=== PATIENT | male | born 1940 | race Caucasian/White ===

== ENCOUNTER → 2016-05-28 | Outpatient (CLI) | payer OTHER ==
[~2016-05-28] MED LIST: APIX2.5T PO; ASPI1TAB69 PO; CARD360C PO; CARV6.252 PO; DICL50TA3 PO; DILT300C3 PO; DILT90TA PO; FLUT1SPR9 EACH NARE; GLUC1000 PO; HYDR-2374 PO; HYDR-3583 PO; NORC5TAB PO; OSTETAB12 PO; ROSU40 PO; ZETI10TA5 PO; [UNRECOGNIZED DRUG - CODE] PO
== END ==
LOC: CPRE 11:57
PROVIDERS: ATTEND Neurological Surgery
DX: Z01.818 Encounter for other preprocedural examination (principal); M48.02 Spinal stenosis, cervical region; M50.30 Other cervical disc degeneration, unspecified cervical region; M47.12 Other spondylosis with myelopathy, cervical region

== ENCOUNTER 2016-06-12 05:23 | Observation (INO) | payer MEDICARE, OTHER ==
--- NOTE | 2016-06-11 14:41 | MH ---
cc: MONICA COELHO M.D., KIRIT M.D. WILSON, VANCE E. M.D. NASHED, MAGDY S. M.D. DATE OF ADMISSION: 06/12/2016 ADMITTING DIAGNOSIS Cervical stenosis. HISTORY OF PRESENT ILLNESS This is a 76-year-old male who we initially evaluated on April 09, 2016 when he presented for evaluation of neck and low back pain. He states 30 years ago he had fallen two stories and landed on his back on a pile of concrete. He states he fracture three vertebrae and a sacrum and has had chronic pain since then. He states his pain was controlled with Celebrex but about a year and a half ago he was taken off this and he states his pain has been bad since then. He was referred to Dr. Hadley and had epidural steroid injections which he states helps sometimes. His last injection was five months ago. He cannot walk, stating his back and right leg hurt equally as bad. He has difficulty stating the exact distribution of his pain in his right leg. He is using a cane and because his right leg feels that he could give out on him. He states he stumbles a lot. He has paresthesias in his hands at night. He also has urinary frequency and states he urinates every hour at night. He complains of chronic neck pain and pain radiating to the right upper extremity. Again, cannot give the exact distribution. He has paresthesias and numbness in his hands at night. He has had PT on his neck and back which he states made the pain worse. He uses a cane to help him ambulate short distances. He has been seen for follow-up evaluation with us on April 30, 2016 to review a new cervical MRI scan. He states that he feels overall his symptoms are getting worse over the last month and is having difficulty sleeping and has to sleep sitting up so his hands do not hurt. He had complaints of weakness in his hands and numbness with intermittent paresthesias right more than left. He has an unsteady gait and urinary urgency and frequency. His neck pain is equal to his low back pain. The patient is requesting that we proceed with surgical intervention at this time. PAST MEDICAL HISTORY 1. Coronary artery disease and heart attack in 2009. 2. Fractured pelvis and three vertebrae 30 years ago. 3. Diabetes mellitus. 4. Emphysema. 5. Osteoarthritis. 6. Hypertension. 7. Benign prostatic hypertrophy. MEDICATIONS Current medications: 1. Crestor 40 mg daily. 2. Zetia 10 mg daily. 3. Diltiazem CD 300 mg daily. 4. Carvedilol 6.25 mg b.i.d. 5. Metformin 1500 mg b.i.d. 6. Flomax 0.4 mg q.h.s. ALLERGIES OXYCONTIN. FAMILY HISTORY His mother is at 86 years old with a stroke. His father is at 99 years old of natural causes. He has a sister who is at 86 years old with heart disease. SOCIAL HISTORY He is a soto. He is . He has four children. He used to smoke and quit in 1997. He drinks 2+ drinks of alcohol daily. REVIEW OF SYSTEMS CONSTITUTIONAL: He denies any fever or chills. EARS, NOSE, AND THROAT: No pharyngitis, exudates or bloody drainage from his nose. CARDIOVASCULAR: Denies any chest pain or palpitations. RESPIRATORY: No cough. Positive for shortness of breath. GENITOURINARY: No dysuria. Positive for urinary frequency. MUSCULOSKELETAL: Positive for neck and low back pain. SKIN: No rashes or pruritus. NEUROLOGIC: No difficulty with speech or memory. GASTROINTESTINAL: No nausea, vomiting, abdominal pain. PSYCHIATRIC: Positive for anxiety symptoms. Denies any depression symptoms. ENDOCRINE: Significant for polyuria. No polydipsia. HEMATOLOGIC: No bleeding tendencies but positive for bruising tendencies. PHYSICAL EXAMINATION HEAD: Normocephalic, atraumatic. NECK: Supple. No carotid bruits heard on auscultation. LUNGS: Clear to auscultation bilaterally. HEART: Regular rate and rhythm. Normal S1 and S2. ABDOMEN: Soft, nontender. Positive bowel sounds. SKIN: No cyanosis or erythema. MUSCULOSKELETAL: He has 3/5 strength in the upper and lower extremities. He has a difficult time ambulating with a cane secondary to his pain and he is unsteady. NEUROLOGIC: He is awake, alert and oriented. Cranial nerves II-XII grossly intact. Speech is fluent. Comprehension is good. DATA REVIEW MRI of the cervical spine from April 29, 2016 reveals C4-C5 and C5-C6 severe disc degeneration with spinal stenosis from a large disc osteophyte complex ventral and posteriorly along with spinal cord impingement ventrally. There is also advanced C3-C4 disc disease with left-sided foraminal stenosis. 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 PLAN We have discussed the treatment options with the patient and he is requesting that we proceed with surgical intervention. Therefore we have recommended an anterior C4-C5 and C5-C6 microdiscectomy with fusion. The procedure as well as the risk benefit, alternative and recovery time were explained in great detail with the patient. We have discussed the risks involved with surgery include but not limited to bleeding, infection, muscle weakness, voice hoarseness, difficulty swallowing, heart attack, stroke, blood clots, non-fusion, scar tissue formation among others. The patient understands the procedure as well as the risks involved and he is requesting that we proceed and he was therefore scheduled accordingly. Dictated by: Quinton Coppola PA-C MD JONNATHAN Delaney/JEWELS /1:08 PM /2:22 PM EDIE
[~2016-06-12] VITALS: Ht 180.3 cm; Wt 82.6 kg
[~2016-06-12 05:23] MED LIST changes: -APIX2.5T PO; -DILT300C3 PO; -DILT90TA PO; -GLUC1000 PO; -HYDR-2374 PO; -NORC5TAB PO
[2016-06-12] MEDS ORDERED: VANCOMYCIN HCL 1000 MG ON-CALL/NS 250 ML IV SCH ×2 (06:30)
[2016-06-12] MEDS ORDERED: SODIUM CHLOR 0.9% 1000 ML INJ 1,000 ML IV SCH (06:30)
[2016-06-12] MEDS ORDERED: DILT300C3 PO (08:05)
[2016-06-12] MEDS ORDERED: LACTATED RINGER'S 1000 ML IV SCH (08:15)
[2016-06-12] MEDS ORDERED: SODIUM CHLORID 0.9% 500 ML IV SCH (08:15)
[2016-06-12] MEDS ORDERED: INSULIN HUMAN REGULAR 1,000 UNITS/10 ML VIAL SQ PRN (08:15)
[2016-06-12] MEDS ORDERED: METOPROLOL TARTRATE 25 MG TAB PO PRN (08:15)
[2016-06-12 08:20] VITALS: BP 147/77; PULSE 99; RESP 16; TEMP 98; O2SAT 97
[2016-06-12] MEDS ORDERED: KETAMINE HCL 500 MG/5 ML VIAL ONE (10:46)
[2016-06-12] MEDS ORDERED: VANCOMYCIN HCL 1000 MG VIAL ONE (10:58)
[2016-06-12] MEDS ORDERED: BUPIVACAINE/EPINEPHRINE 0.25% PF 30 ML VIAL ONE (10:58)
[2016-06-12] MEDS ORDERED: THROMBIN (TOPICAL) 5,000 UNIT VIAL ONE ×2 (10:58→13:23)
[2016-06-12] MEDS ORDERED: GELFOAM SIZE 100 ONE (10:59)
[2016-06-12] MEDS ORDERED: ONDANSETRON HCL 4 MG/2 ML VIAL IV PUSH ONE (12:00)
[2016-06-12] MEDS ORDERED: PHENYLEPH/NS 1000 MCG/10 ML SYR IV ONE (12:00)
[2016-06-12] MEDS ORDERED: PROPOFOL 200 MG/20 ML AMP IV ONE (12:00)
[2016-06-12] MEDS ORDERED: LACTATED RINGER'S 1000 ML INJ 2,000 ML IV ONE (12:00)
[2016-06-12] MEDS ORDERED: NS + KCL 20 MEQ INJ 1,000 ML IV SCH (13:58)
[2016-06-12] MEDS ORDERED: CYCLOBENZAPRINE HCL 10 MG TAB PO PRN (14:00)
[2016-06-12] MEDS ORDERED: ALUMINUM/MAGNESIUM/SIMETH 30 ML CUP PO PRN (14:00)
[2016-06-12] MEDS ORDERED: RESP: ALBUTEROL 2.5 MG/3 ML NEB (PRN) NEB (14:00)
[2016-06-12] MEDS ORDERED: MORPHINE SULFATE 4 MG/ML INJ IV PRN (14:00)
[2016-06-12] MEDS ORDERED: GLUCAGON 1 MG/ML VIAL OTHER PRN (14:00)
[2016-06-12] MEDS ORDERED: BISACODYL 10 MG SUPP PR PRN (14:00)
[2016-06-12] MEDS ORDERED: ACETAMINOPHEN 325 MG TAB PO PRN (14:00)
[2016-06-12] MEDS ORDERED: PROMETHAZINE INJ 25 MG/ML VIAL IM PRN (14:00)
[2016-06-12] MEDS ORDERED: MENTHOL LOZENGE SUCK-ON PRN (14:00)
[2016-06-12] MEDS ORDERED: MAGNESIUM HYDROXIDE SUSP 30 ML CUP PO PRN (14:00)
[2016-06-12] MEDS ORDERED: ONDANSETRON HCL 4 MG/2 ML VIAL IV PRN (14:00)
[2016-06-12] MEDS ORDERED: ACETAMINOPHEN/HYDROcodone 325 MG/10 MG TAB PO PRN (14:00)
[2016-06-12] MEDS ORDERED: ZOLPIDEM TARTRATE 5 MG TAB PO PRN (14:00)
[2016-06-12] MEDS ORDERED: SODIUM CHLORIDE 0.9% FLUSH 5 ML FLUSH IVF PRN (14:00)
[2016-06-12] MEDS ORDERED: cloNIDine HCL 0.1 MG TAB PO PRN (14:00)
[2016-06-12] MEDS ORDERED: DEXTROSE 50% IN WATER 50 ML VIAL(D50) IV PUSH PRN (14:00)
[2016-06-12 14:02] VITALS: BP 142/94; PULSE 106; RESP 18; TEMP 97.5; O2SAT 90
--- NOTE | 2016-06-12 14:07 | PD.OP ---
cc: Austyn Mccollum MD; Michael Suarez MD, Kirit MD Operative Report Date of Surgery: Jun 12, 2016 Preoperative Diagnosis: Cervical C4-5 and C5-6 disc osteophyte complex with degenerative disc disease and spinal stenosis; neck pain with myeloradiculopathy Postoperative Diagnosis: Same Procedure: Anterior cervical C4-5 and C5-6 microdiscectomy with interbody fusion; anterior C4-6 cervical plate placement; C4-5 and C5-6 interbody cage placement; microtechnique Anesthesia: Gen. endotracheal by Estefany Washington Surgeon: Kevin Wong M.D. Policy Change Clerk(s): Julia Martinez Operation and Findings: Following administration of general endotracheal anesthesia, the patient received a gram of vancomycin and Decadron 10 mg intravenously. Sequential compression devices were placed in supine position on a Randall table and all pressure points adequately padded. The head secured in a donut and anterior cervical region then shaved and prepped with Chloraprep and sterilely draped with Ioban along with the usual sterile draping. A transverse skin incision on the left side of the neck was then made after infiltrating the skin with 0.5% Marcaine with epinephrine solution extending down through the platysma. At the anterior border of the sternocleidomastoid further dissection was undertaken developing a plane between the carotid sheath laterally and the trachea esophagus medially. The prevertebral fascia was exposed and dissected out. The medial attachments of the longus colli muscles were detached and a self- retaining retractor used for exposure. The C4-5 disc space was localized with a marking the disc space and using lateral fluoroscopy. Terrell distraction screws 14 mm length were placed one in the C4 and one in the C6 body interbody distraction and exposure. There was significant disc degeneration with disc height collapse and anterior osteophytes noted at the C4-5 and C5-6 levels and the osteophytes were resected with a Leksell and annulus incised with a 15 blade and further dissection undertaken using microtechnique with microscope magnification. Diskectomy was undertaken with pituitaries and the endplates were also decorticated with curettes and drill bit. And more posteriorly there was disk osteophyte complex compressing the thecal sac along with a significant uncovertebral joint hypertrophy with foraminal stenosis which was decompressed along with removal of the posterior longitudinal ligaments at both levels. The foramen was decompressed bilaterally using a Kerrison's and palpation with a nerve hook, the exiting nerve roots were felt to be free. The area was then copiously irrigated. I then placed a Peek cages packed with local autograft bone at the C4-5 and C5-6 interspaces under fluoroscopy guidance. Terrell distraction pins were removed and the holes plugged with Gelfoam for hemostasis. In order to facilitate the fusion and provide stabilization, a Precision spine cervical plate was then placed with two 14 mm variable angle screws in the C4 body, one in the C5 and two 14 mm fixed angle screws in the C6 body. The plate screw locking mechanism was then engaged. AP and lateral fluoroscopy confirmed good placement of the construct and the retractor was then removed. Muscular bleeding points were cauterized with bipolar cautery and Gelfoam was then also used for hemostasis which was removed. The platysma was then approximated using 3-0 Vicryl interrupted stitches and 3-0 Vicryl subcuticular stitch also placed in an interrupted fashion, and final skin closure was with Mastisol and Steri-Strips. Sterile dressing was then applied. The patient was then extubated and taken to the recovery room. There are no intraoperative complications and all sponge and needle counts were correct at the end of procedure. Estimated blood loss was about 200 cc. The patient did undergo intraoperative neurologic monitoring which remained stable throughout the surgery. Kevin Wong MD Jun 12, 2016 14:07
[2016-06-12] MEDS ORDERED: fentaNYL CITRATE 250 MCG/5 ML AMP ONE (14:22)
[2016-06-12] MEDS ORDERED: *morphine SULFATE 8 MG/ML PERIprocedure ONLY ONE ×2 (14:35→14:45)
[2016-06-12] MEDS ORDERED: *HYDROmorphone PF 1 MG VIAL PERIprocedural Use ONLY ONE ×2 (14:51→15:36)
[2016-06-12] MEDS ORDERED: DO NOT ADM ANY ANTICOAGULANT DRUGS XX PRN (15:15)
--- NOTE | 2016-06-12 15:18 | RADRPT ---
EXAM DATE/TIME: 06/12/2016 11:05 [facility] COMPARISON: No previous studies available for comparison. INDICATIONS : C4-C5-C6 anterior cervical fusion. Level localization. MEDICAL HISTORY : None. SURGICAL HISTORY : None. ENCOUNTER: Initial ACUITY: 1 day PAIN SCORE: Non-responsive. LOCATION: neck FINDINGS: FINDINGS: Single lateral view of the spine demonstrates the spine to be in anatomic alignment. A probe is in pl lilo at the C4-C5. CONCLUSION: 1. Postsurgical changes as above. Justin Eagle MD on June 12, 2016 at 15:11 Board Certified Radiologist. This report was verified electronically.
--- NOTE | 2016-06-12 15:20 | RADRPT ---
EXAM DATE/TIME: 06/12/2016 11:05 [facility] COMPARISON: No previous studies available for comparison. INDICATIONS : Post-op C4-C5-C6 anterior cervical fusion. MEDICAL HISTORY : None. SURGICAL HISTORY : None. ENCOUNTER: Initial ACUITY: 1 day PAIN SCORE: Non-responsive. LOCATION: neck FINDINGS: There is anterior cervical fusion with a plate anteriorly from C4-C6. The vertebral bodies are normal in alignment on the lateral view. CONCLUSION: 1. Postsurgical changes as above. Justin Eagle MD on June 12, 2016 at 15:16 Board Certified Radiologist. This report was verified electronically.
[2016-06-12] MEDS: INSULIN NovoLIN REGULAR SUPPLEMENTAL SCALE SQ SCH ×2 (15:58→21:00)
[2016-06-12] MEDS: ACETAMINOPHEN/HYDROcodone 325 MG/10 MG TAB PO PRN ×2 (17:21→22:16)
[2016-06-12 20:00] VITALS: BP 109/67; PULSE 109; RESP 18; TEMP 98.2; O2SAT 93
[2016-06-12] MEDS: SODIUM CHLORIDE 0.9% FLUSH 5 ML FLUSH IVF SCH (21:00)
[2016-06-12] MEDS ORDERED: EZETIMIBE 10 MG TAB PO SCH (21:00)
[2016-06-12] MEDS ORDERED: ATORVASTATIN 80 MG TAB PO SCH (21:00)
[2016-06-12] MEDS ORDERED: DILTIAZEM-CD 300 MG CAP ER PO SCH (21:00)
[2016-06-12] MEDS: CARVEDILOL 6.25 MG TAB PO SCH (22:52)
[2016-06-12] MEDS: DOCUSATE SODIUM 100 MG CAP PO SCH (22:52)
[2016-06-13] VITALS: BP 118/72; PULSE 110; RESP 18; TEMP 97.6; O2SAT 93
[2016-06-13 02:27] VITALS: O2SAT 95
[2016-06-13] MEDS: ACETAMINOPHEN/HYDROcodone 325 MG/10 MG TAB PO PRN ×2 (02:28→06:49)
[2016-06-13 04:00] VITALS: BP 120/78; PULSE 103; RESP 18; TEMP 96.3; O2SAT 96
[2016-06-13] MEDS: INSULIN NovoLIN REGULAR SUPPLEMENTAL SCALE SQ SCH (06:50)
[2016-06-13 08:02] VITALS: BP 127/75; PULSE 99; RESP 18; TEMP 97.3; O2SAT 94
[2016-06-13 08:20] VITALS: RESP 16
[2016-06-13] MEDS ORDERED: ASPIRIN EC 81 MG TABEC PO SCH (09:00)
[2016-06-13] MEDS ORDERED: CALCIUM CARBONATE 1.25 GM (CA 500 MG) TAB PO SCH (09:00)
[2016-06-13] MEDS ORDERED: PANTOPRAZOLE SOD 40 MG DELAYED RELEASE TAB PO SCH (09:00)
[2016-06-13] MEDS ORDERED: FLUTICASONE PROPIONATE 50 MCG/ACT 16 GM NASAL SPRAY EACH NARE SCH (09:00)
[2016-06-13] MEDS ORDERED: CHOLECALCIFEROL (VIT D3) 1000 UNIT TAB PO SCH (09:00)
--- NOTE | 2016-06-13 09:38 | HHI.NSPN ---
History Chief Complaint: Mild incisional pain. Interval History 06/13/16: Pt states neck pain controlled. No radiculopathy in UEs. Paresthesias in UEs improved. Pt wants to go home. Review of Systems General: Negative for: fever, chills, insomnia Respiratory: Negative for: shortness of breath, cough, sputum Cardiovascular: Negative for: chest pain Gastrointestinal: Negative for: nausea, vomitting, diarrhea, constipation Exam Results Vital Signs Date Time Temp Pulse Resp B/P Pulse Ox O2 Delivery O2 Flow Rate FiO2 06/13/16 08:02 97.3 99 18 127/75 94 06/13/16 02:27 Nasal Cannula 2.00 Intake and Output 06/12/16 06/12/16 06/13/16 08:00 16:00 00:00 Intake Total 2250 ml Output Total 925 ml Balance 1325 ml Physical Examination Resp: CTA bilaterally Heart: NSR no murmurs Abd: Soft positive bs Skin: Incision clean and dry. No signs of infection. Muscle: Moves all 4 extremities well. Neuro: Pt awake and alert. Follows commands well. Speech clear and appropriate. Lab, Micro, Other Results 06/12/16 06/12/16 06/13/16 15:00 23:00 07:00 Intake Total 2100 ml 150 ml Output Total 525 ml 400 ml 700 ml Balance 1575 ml -250 ml -700 ml Intake Oral 0 ml IV Total 150 ml Other 2100 ml Output Urine Total 325 ml 400 ml 700 ml Estimated Blood Loss 200 ml Medical Decision Making Impression and Plan A: 76 y/o M s/p C4/C5 and C5/C6 ACF with cervical plate placement P: Discharge pt home Keep incision clean and dry. Discussed restrictions with pt. Quinton Coppola Jun 13, 2016 09:38
[2016-06-13] MEDS ORDERED: HYDR-3583 PO (09:44)
[2016-06-13] MEDS: DOCUSATE SODIUM 100 MG CAP PO SCH (10:03)
[2016-06-13] MEDS: CARVEDILOL 6.25 MG TAB PO SCH (10:03)
[2016-06-13] MEDS: SODIUM CHLORIDE 0.9% FLUSH 5 ML FLUSH IVF SCH (10:04)
== END 2016-06-13 11:36 | disposition home or self-care (01) ==
LOC: HSDC 05:23 → UNDOADMIN 14:02 → HSDI 14:02 → N05A 16:31
PROVIDERS: ADMIT Neurological Surgery; ATTEND Neurological Surgery
DX: M48.02 Spinal stenosis, cervical region (principal); M25.78 Osteophyte, vertebrae; M50.121 Cervical disc disorder at C4-C5 level with radiculopathy; R35.0 Frequency of micturition; I25.10 Atherosclerotic heart disease of native coronary artery without angina pectoris; E11.9 Type 2 diabetes mellitus without complications; J43.9 Emphysema, unspecified; M19.90 Unspecified osteoarthritis, unspecified site; I10 Essential (primary) hypertension; N40.0 Benign prostatic hyperplasia without lower urinary tract symptoms; R20.0 Anesthesia of skin; R53.1 Weakness; R26.81 Unsteadiness on feet; Z87.891 Personal history of nicotine dependence; Z82.49 Family history of ischemic heart disease and other diseases of the circulatory system
CPT/HCPCS: 00600; 20936; 22551; 22552; 22853; 72020; 72040; 76000; 76937; 82948; C1713; G0378; J0690; J1170; J2270; J2370; J2405; J3010; J3370; J3480; J7050; J7120; L0150; L0172

== ENCOUNTER 2018-03-17 11:51 | Inpatient (IN) ==
[2018-03-17] MEDS ORDERED: Sod Chloride 0.9% Inj 1,000 ML IV.SIG ONE (12:16)
[2018-03-17] MEDS ORDERED: Morphine Inj 4 MG/ML Vial IV.PUSH ONE (12:16)
--- NOTE | 2018-03-17 12:18 | ED ---
HPI General Chief Complaint: Abdominal Pain Stated Complaint: Abd Pain Complaint Time Seen by Provider: 03/17/18 12:06 Source: patient Mode of arrival: ambulatory Limitations: no limitations History of Present Illness HPI narrative: Patient is a 77-year-old male with history of lung cancer currently undergoing chemotherapy treatment, presents the emergency room with complaints of abdominal pain. Patient reports that for the past 3 months, he has been having intermittent episodes of lower abdominal pain. Patient reports that the pain came on yesterday morning and has been persistent since yesterday morning. Patient has not been able to eat or drink anything since yesterday. Reports that his doctors made him come to the ER for evaluation. Patient denies any nausea or vomiting, reports that he had a normal bowel movement today. Patient denies any fever or chills, denies any dysuria, urinary urgency or frequency. Patient reports that he has had a colonoscopy in the past, reports that the colonscopies have been normal . Related Data Home Medications Medication Instructions Recorded Confirmed aspirin [Aspirin Low Dose] 81 mg PO BID 01/02/18 03/17/18 carvedilol 6.25 mg PO BID 01/02/18 03/17/18 diltiazem HCl 300 mg PO DAILY 01/02/18 03/17/18 ezetimibe [Zetia] 10 mg PO DAILY 01/02/18 03/17/18 glucosamine-chondroitin [Osteo 2 tab PO DAILY 01/02/18 03/17/18 Bi-Flex] metformin 500 mg PO TID 01/02/18 03/17/18 omeprazole 20 mg PO BID 01/02/18 03/17/18 rosuvastatin 40 mg PO DAILY 01/02/18 03/17/18 tamsulosin 0.4 mg PO DAILY 01/02/18 03/17/18 Allergies Allergy/AdvReac Type Severity Reaction Status Date / Time acetaminophen Allergy Severe Rash Verified 03/17/18 12:22 oxycodone Allergy Severe Rash Verified 03/17/18 12:22 Review of Systems ROS: all other systems reviewed are negative PMFSH History History Provided By: Patient Medical History Medical History Cancer of left lung (Acute) Coronary artery disease (Acute) Current non-smoker but past smoking history unknown (Acute) Diabetes mellitus (Acute) GERD (gastroesophageal reflux disease) (Acute) History of spinal stenosis (Acute) Myocardial infarct, old (Acute) Surgical History Surgical History H/O heart artery stent (Acute) H/O right knee surgery (Acute) Social History Social History Substance History: No History of Abuse Second Hand Smoke Exposure: No Smoking Status: Former smoker Tobacco Type: Cigarettes How Often Do You Have a Drink Containing Alcohol: Monthly or less Recent Travel in [facility] within the Last 8 Weeks: No Recent Out of Country Travel within the Last 8 Weeks: No Exam Narrative Exam Narrative: GENERAL: Moderate distress SKIN: Focused skin assessment warm/dry. HEAD: Atraumatic. Normocephalic. EYES: Pupils equal and round. No scleral icterus. No injection or drainage. ENT: No nasal bleeding or discharge. Mucous membranes pink and moist. NECK: Trachea midline. No JVD. CARDIOVASCULAR: Regular rate and rhythm. No murmur appreciated. RESPIRATORY: No accessory muscle use. Clear to auscultation. Breath sounds equal bilaterally. GASTROINTESTINAL: Abdomen soft, diffusely tender lower abdomen with guarding on exam, nondistended. Hepatic and splenic margins not palpable. MUSCULOSKELETAL: No obvious deformities. No clubbing. No cyanosis. No edema. NEUROLOGICAL: Awake and alert. No obvious cranial nerve deficits. Motor grossly within normal limits. Normal speech. PSYCHIATRIC: Appropriate mood and affect; insight and judgment normal. Course Initial Documented Vital Signs Temperature 98.9 F 03/17/18 11:57 Pulse Rate 114 H 03/17/18 11:57 Respiratory Rate 18 03/17/18 11:57 Blood Pressure 135/85 03/17/18 11:57 Pulse Oximetry 96 03/17/18 11:57 Last Documented Vital Signs Temperature 98.9 F 03/17/18 11:57 Pulse Rate 114 H 03/17/18 11:57 Respiratory Rate 18 03/17/18 11:57 Blood Pressure 135/85 03/17/18 11:57 Pulse Oximetry 96 03/17/18 12:19 Medical Decision Making MDM Narrative Medical decision making narrative: During the course of the patients emergency department visit, the patients history, examination, and differential diagnosis were reviewed with the patient. The patient was placed on a bank reconciliator with oximetry and frequent blood pressure monitoring. The patient had an IV access obtained and blood work sent for analysis. The patient was initially provided IVF as well as IV morphine for pain relief - he has tolerated morphine in the past The patients laboratory studies were reviewed and remarkable for: WBC 13.3, hgb 12.1, hct 38.1, platelets 450 Sodium 139, potassium 3.6, BUN 10, creatinine 1.21, glucose 119 CT of the abdomen and pelvis shows abnormal loops of distal small bowel in the right midabdomen with wall thickening and surrounding inflammatory change. This is nonspecific and could be infectious versus inflammatory. Given patient' s abdominal pain, plan to admit for observation, will give ciprofloxacin as well as Flagyl. Case reviewed with Dr. Das who accepts pt to service Medical Screen Exam Complete: Yes Emergency Medical Condition: Yes Differential Diagnosis Differential Diagnosis: Colitis, diverticulitis, appendicitis, abdominal aortic aneurysm, mesenteric ischemia Lab Data Lab results reviewed: Yes I reviewed the patient's lab results. Result diagrams: 03/17/18 12:31 03/17/18 12:31 Lab Results 03/17/18 03/17/18 03/17/18 Range/Units 12:31 12:31 12:31 WBC 13.3 H (4.0-11.0) th/mm3 RBC 4.35 L (4.50-5.90) mil/mm3 Hgb 12.1 L (13.0-17.0) gm/dL Hct 38.1 L (39.0-51.0) % MCV 87.4 (80.0-100.0) fL MCH 27.9 (27.0-34.0) pg MCHC 31.9 L (32.0-36.0) % RDW 15.9 (11.6-17.2) % Plt Count 450 (150-450) th/mm3 MPV 7.9 (7.0-11.0) fL Neut % (Auto) 83.2 H (16.0-70.0) % Lymph % (Auto) 8.2 L (9.0-44.0) % [place] % (Auto) 7.7 (0.0-8.0) % Eos % (Auto) 0.2 (0.0-4.0) % Baso % (Auto) 0.7 (0.0-2.0) % Neut # (Auto) 11.1 H (1.8-7.7) th/mm3 Lymph # (Auto) 1.1 (1.0-4.8) th/mm3 [place] # (Auto) 1.0 H (0.0-0.9) th/mm3 Eos # (Auto) 0.0 (0.0-0.4) th/mm3 Baso # (Auto) 0.1 (0.0-0.2) th/mm3 WBC Differential . Differential Comment Auto diff final PT 12.1 H (9.8-11.6) sec INR 1.2 Ratio APTT 29.2 (23.4-31.7) sec Sodium 139 (136-145) meq/L Potassium 3.6 (3.5-5.1) meq/L Chloride 101 (98-107) meq/L Carbon Dioxide 27.5 (21.0-32.0) meq/L Anion Gap 11 (5-15) meq/L BUN 10 (7-18) mg/dL Creatinine 1.21 (0.60-1.30) mg/dL Estimated GFR 58 L (>89) mL/min Random Glucose 119 H (74-106) mg/dL Calcium 9.5 (8.5-10.1) mg/dL Magnesium 1.5 (1.5-2.5) mg/dL Total Bilirubin 0.3 (0.2-1.0) mg/dL AST 18 (15-37) U/L ALT 12 (12-78) U/L Alkaline Phosphatase 78 (45-117) U/L Total Protein 8.0 (6.4-8.2) g/dL Albumin 2.7 L (3.4-5.0) g/dL Lipase 69 L (73-393) U/L Imaging Data Attestation: I personally reviewed and interpreted this imaging study as follows : Radiologist's impression: Abdomen/Pelvis CT 03/17/18 12:16 CONCLUSION: 1. Abnormal loops of distal small bowel in the right midabdomen with wall thickening and surrounding inflammatory change. This is nonspecific and could be infectious or inflammatory. This area was unremarkable on the recent PET/CT dated 01/27/2018. Discharge Plan Discharge Disposition Patient Disposition: 30 Still Patient Discharge Condition Condition: Stable Discharge Details Diagnosis: Colitis Physicians Team ED Provider: Shasta Allen Primary Care Provider: Supinski,Edward Rxs /Orders / Referrals /Forms Prescriptions: No Action metformin 500 mg Tablet 500 mg PO TID RF: 0 carvedilol 6.25 mg Tablet 6.25 mg PO BID RF: 0 diltiazem HCl 300 mg Capsule,Extended Release 24 Hr 300 mg PO DAILY RF: 0 aspirin [Aspirin Low Dose] 81 mg Tablet,Delayed Release (Dr/Ec) 81 mg PO BID RF: 0 tamsulosin 0.4 mg Capsule,Extended Release 24hr 0.4 mg PO DAILY RF: 0 ezetimibe [Zetia] 10 mg Tablet 10 mg PO DAILY RF: 0 glucosamine-chondroitin [Osteo Bi-Flex] 250-200 mg Tablet 2 tab PO DAILY RF: 0 rosuvastatin 40 mg Tablet 40 mg PO DAILY RF: 0 omeprazole 20 mg Tablet,Delayed Release (Dr/Ec) 20 mg PO BID RF: 0 Discharge Interventions Interventions: Vital Signs Last Done: 03/17/18 11:57 Status ED Status: With Doctor
[2018-03-17 12:41] LABS: Baso # (Auto) 0.1 th/mm3 (0.0-0.2); Baso % (Auto) 0.7 % (0.0-2.0); Eos % (Auto) 0.2 % (0.0-4.0); Hematocrit 38.1 % (39.0-51.0); Hemoglobin 12.1 gm/dL (13.0-17.0); Lymph # (Auto) 1.1 th/mm3 (1.0-4.8); Lymph % (Auto) 8.2 % (9.0-44.0); Mean Corpuscular HGB Conc 31.9 % (32.0-36.0); Mean Corpuscular Hemoglobin 27.9 pg (27.0-34.0); Mean Corpuscular Volume 87.4 fL (80.0-100.0); Mean Platelet Volume 7.9 fL (7.0-11.0); Mono % (Auto) 7.7 % (0.0-8.0); Neut # (Auto) 11.1 th/mm3 (1.8-7.7); Neut % (Auto) 83.2 % (16.0-70.0); Platelet Count 450 th/mm3 (150-450); Red Blood Count 4.35 mil/mm3 (4.50-5.90); Red Cell Distribution Width 15.9 % (11.6-17.2); White Blood Count 13.3 th/mm3 (4.0-11.0)
[2018-03-17 12:53] LABS: Activated Partial Thrombo Time 29.2 sec (23.4-31.7); INR 1.2 Ratio; Prothrombin Time 12.1 sec (9.8-11.6)
[2018-03-17 12:56] LABS: Alanine Aminotransferase 12 U/L (12-78); Albumin 2.7 g/dL (3.4-5.0); Anion Gap 11 meq/L (5-15); Aspartate Aminotransferase 18 U/L (15-37); Blood Urea Nitrogen 10 mg/dL (7-18); Calcium 9.5 mg/dL (8.5-10.1); Carbon Dioxide 27.5 meq/L (21.0-32.0); Chloride 101 meq/L (98-107); Glomerular Filtration Rate 58 mL/min (>89); Glucose,Random 119 mg/dL (74-106); Lipase 69 U/L (73-393); Magnesium 1.5 mg/dL (1.5-2.5); Potassium 3.6 meq/L (3.5-5.1); Sodium 139 meq/L (136-145)
[2018-03-17 12:58] LABS: Alkaline Phosphatase 78 U/L (45-117)
--- NOTE | 2018-03-17 13:53 | CT ---
EXAM DATE: 03/17/2018 1:38 PM EST AGE/SEX: 77 years / Male INDICATIONS: Abdominal pain since yesterday. CLINICAL DATA: This is the patient's initial encounter. Patient reports that signs and symptoms have been present for 2 days and indicates a pain score of 6/10. MEDICAL/SURGICAL HISTORY: Carcinoma, lung. Diabetes. Cardiovascular disease. Myocardial infa rction. . Cardiac stent. ORAL CONTRAST: No oral contrast ingested. RADIATION DOSE: 6.97 CTDI (mGy) COMPARISON: [facility], CT SIMULATION, 03/06/2018. . TECHNIQUE: Multiple contiguous axial images were obtained through the abdomen and pelvis following b olus infusion of 96 ml Omnipaque 350 (iohexol) nonionic water-soluble contrast as a single exam dos e. No oral contrast ingested. Using automated exposure control and adjustment of the mA and/or kV ac cording to patient size, radiation dose was kept as low as reasonably achievable to obtain optimal di agnostic quality images. DICOM format image data is available electronically for review and comparis on. FINDINGS: Lower Lungs: There is a minimal right pleural effusion. Liver: The liver has a homogeneous density without space-occupying lesion. There is no dilation of th e biliary tree. The gallbladder is unremarkable in appearance. Spleen: Homogeneous density without enlargement. Pancreas: Unremarkable without mass or calcification. Kidneys: Normal in size and shape. No evidence of mass or hydronephrosis. Adrenal Glands: Unremarkable. Aorta: The aorta and proximal iliac vessels are grossly unremarkable without aneurysmal dilation. Bowel/Mesentery: No oral contrast was given limiting the sensitivity. There is an abnormal loop of b owel right mid abdomen with wall thickening and surrounding inflammatory change. This appears to repr esent small bowel. There is no drainable fluid or free air.. Abdominal Wall: Intact. Retroperitoneum: No evidence of adenopathy in the retrocrural, para-aortic, or deep pelvic regions. Bladder: Contours are smooth. Reproductive Organs: No abnormal masses or calcifications seen. Inguinal: The inguinal region is unremarkable without evidence of adenopathy. Bony Structures: Osteopenia, degenerative change and scoliosis are present. CONCLUSION: 1. Abnormal loops of distal small bowel in the right midabdomen with wall thickening and surrounding inflammatory change. This is nonspecific and could be infectious or inflammatory. This area was unre markable on the recent PET/CT dated 01/27/2018. Electronically signed by: Yassine Bacon MD 03/17/2018 1:52 PM EST
[2018-03-17] MEDS ORDERED: Ciprofloxacin 200 MG/100 ML 200 MG/100 ML PIGGYBACK IV.SIG ONE (14:44)
[2018-03-17] MEDS ORDERED: Dextrose 50% in Water 50 ML Vial IV.PUSH PRN (15:09)
--- NOTE | 2018-03-17 15:18 | P.HPIM ---
History of Present Illness Primary Care Physician: Jose Smart MD Chief Complaint: abdominal pain History of Present Illness: patient is a 77 y/o male with history of lung cancer, CAD, hypertension, diabetes mellitus and dyslipidemia who presented to ER with abdominal pain. he says that he's had this pain- on and off- for the past three months. pain is periumbilical with no radiation. pain was not associated with nausea, vomiting, change in BM or fever. he says that he was prescribed antibiotics by her pcp about two weeks ago with no significant relief. he says that the pain started to get worse yesterday. he says that he went for his radiation this morning and then he was advised to come to ER. he says that he's in the process of a referral to a manager electrical. he says that his last colonoscopy was three years ago which reportedly didn't reveal any major abnormalities. Inpatient Certification: I certify that the inpatient services were ordered in accordance with Medicare regulations governing the order. This includes certification that hospital inpatient services are reasonable and necessary and in the case of services not specified as inpatient-only under 42 CFR 419.22(n), that they are appropriately provided as inpatient services in accordance to with the 2-midnight benchmark under 43 CFR 412.3(e) Review of Systems All other systems reviewed negative except as stated in HPI PMFSH - History History Provided By: Patient - Medical History Medical History: Medical History (Last Reviewed 03/17/18 @ 15:14 by Georgina Walton MD) Cancer of left lung Coronary artery disease Current non-smoker but past smoking history unknown Diabetes mellitus GERD (gastroesophageal reflux disease) History of spinal stenosis Myocardial infarct, old - Surgical History Surgical History: Surgical History (Last Reviewed 03/17/18 @ 15:15 by Georgina Walton MD) H/O heart artery stent H/O right knee surgery - Family History Family History: Family History (Last Updated 03/17/18 @ 15:15 by Georgina Walton MD) Other No pertinent family history - Tobacco History Second Hand Smoke Exposure: No Smoking Status: Former smoker Tobacco Type: Cigarettes - Alcohol History How Often Do You Have a Drink Containing Alcohol: Monthly or less - Substance Use History Substance History: No History of Abuse - Travel History Recent Travel in the [place] Within the Last 8 Weeks: No Recent Travel Out of the Country Within the Last 8 Weeks: No - Immunization History Tetanus Immunization: >5 Years Medications and Allergies Active Medications: Active Medications Carvedilol (Coreg) 6.25 mg PO BID NIKKI Dextrose (D50w Vial) 50 ml IV.PUSH UNSCH PRN PRN Reason: PER HYPOGLYCEMIA PROTOCOL Ezetimibe (Zetia) 10 mg PO DAILY NIKKI Glucagon (Glucagon Inj) 1 mg OTHER PRN PRN PRN Reason: for Hypoglycemia Protocol Metronidazole/Sodium Chloride (Flagyl 500 Mg Inj) 100 mls @ 100 mls/hr IV.SIG ONCE ONE Stop: 03/17/18 15:43 Last Admin: 03/17/18 15:01 Dose: 100 mls/hr Ciprofloxacin/Dextrose (Cipro 200 Mg/100 Ml Inj) 200 mg in 100 mls @ 100 mls/ hr IV.SIG ONCE ONE Stop: 03/17/18 15:43 Metronidazole/Sodium Chloride (Flagyl 500 Mg Inj) 100 mls @ 100 mls/hr IV.SIG Q8H NIKKI Sodium Chloride (Ns Inj) 1,000 mls @ 100 mls/hr IV.CONT .Q10H NIKKI Ciprofloxacin/Dextrose (Cipro 400 Mg/200 Ml Inj) 400 mg in 200 mls @ 200 mls/ hr IV.SIG Q12H NIKKI Insulin Aspart (Novolog Insulin Correctional Sugar Inj) 0 unit SQ ACHS NIKKI; Protocol Morphine Sulfate (Morphine Inj) 2 mg IV.PUSH Q4H PRN PRN Reason: pain Non-Formulary Medication (Rosuvastatin [Rosuvastatin]) 40 mg PO DAILY NIKKI Ondansetron HCl (Zofran Inj) 4 mg IV.PUSH Q8H PRN PRN Reason: nausea Sodium Chloride (Ns Flush) 2 ml IV.FLUSH PRN PRN PRN Reason: FLUSH AFTER USING IV ACCESS Tamsulosin HCl (Flomax) 0.4 mg PO DAILY [facility] Allergies Allergy/AdvReac Type Severity Reaction Status Date / Time acetaminophen Allergy Severe Rash Verified 03/17/18 12:22 oxycodone Allergy Severe Rash Verified 03/17/18 12:22 Home Medications Medication Instructions Recorded Confirmed Type aspirin [Aspirin Low Dose] 81 mg PO BID 01/02/18 03/17/18 History carvedilol 6.25 mg PO BID 01/02/18 03/17/18 History diltiazem HCl 300 mg PO DAILY 01/02/18 03/17/18 History ezetimibe [Zetia] 10 mg PO DAILY 01/02/18 03/17/18 History glucosamine-chondroitin [Osteo 2 tab PO DAILY 01/02/18 03/17/18 History Bi-Flex] metformin 500 mg PO TID 01/02/18 03/17/18 History omeprazole 20 mg PO BID 01/02/18 03/17/18 History rosuvastatin 40 mg PO DAILY 01/02/18 03/17/18 History tamsulosin 0.4 mg PO DAILY 01/02/18 03/17/18 History Exam Vital signs: Vital Signs 03/17/18 11:57 03/17/18 12:19 Temperature 98.9 F Pulse Rate 114 H Respiratory Rate 18 Blood Pressure 135/85 Pulse Oximetry 96 96 Intake & Output 03/16/18 03/17/18 03/17/18 18:59 06:59 18:59 Weight 75.75 kg - Constitutional no acute distress - Routine HEENT Exam Eye: Present: PERRL - Routine Neck Exam Present: supple - Routine Respiratory Exam Present: CTA bilaterally - Routine Cardiovascular Exam Present: RRR - Routine Abdominal Exam Present: soft, tenderness (periumblical tenderness.) - Routine Extremities Exam Comments: no pedal edema. - Routine Neurological Exam Present: alert, oriented X3 Results - Labs CBC & Chem 7: 03/17/18 12:31 03/17/18 12:31 Labs: Short CBC 03/17/18 Range/Units 12:31 WBC 13.3 H (4.0-11.0) th/mm3 Hgb 12.1 L (13.0-17.0) gm/dL Hct 38.1 L (39.0-51.0) % Plt Count 450 (150-450) th/mm3 BMP 03/17/18 12:31 Sodium 139 Potassium 3.6 Chloride 101 Carbon Dioxide 27.5 BUN 10 Creatinine 1.21 Calcium 9.5 Liver Function 03/17/18 Range/Units 12:31 Total Bilirubin 0.3 (0.2-1.0) mg/dL AST 18 (15-37) U/L ALT 12 (12-78) U/L Alkaline Phosphatase 78 (45-117) U/L Albumin 2.7 L (3.4-5.0) g/dL - Imaging Impressions Abdomen/Pelvis CT 03/17/18 12:16 CONCLUSION: 1. Abnormal loops of distal small bowel in the right midabdomen with wall thickening and surrounding inflammatory change. This is nonspecific and could be infectious or inflammatory. This area was unremarkable on the recent PET/CT dated 01/27/2018. Caprini VTE Risk Assessment Caprini VTE Risk Assessment: Moderate/High Risk (score >= 2) Caprini Risk Assessment Model: Point Value = 1 Point Value = 2 Point Value = 3 Point Value = 5 Age 41-60 Minor surgery BMI > 25 kg/m2 Swollen legs Varicose veins or History of unexplained or recurrent spontaneous Oral contraceptives or hormone replacement Sepsis (< 1 month) Serious lung disease, including pneumonia (< 1 month) Abnormal pulmonary function Acute myocardial infarction Congestive heart failure (< 1 month) History of inflammatory bowel disease Medical patient at bed rest Age 61-74 Arthroscopic surgery Major open surgery (> 45 min) Laparoscopic surgery (> 45 min) Malignancy Confined to bed (> 72 hours) Immobilizing plaster cast Central venous access Age >= 75 History of VTE Family history of VTE Factor V Leiden Prothrombin [id number] Lupus anticoagulant Anticardiolipin antibodies Elevated serum homocysteine Heparin-induced thrombocytopenia Other congenital or acquired thrombophilia Stroke (< 1 month) Elective arthroplasty Hip, pelvis, or leg fracture Acute spinal cord injury (< 1 month) Prophylaxis Regimen: Total Risk Factor Score Risk Level Prophylaxis Regimen 0-1 Low Early ambulation 2 Moderate Order ONE of the following: *Sequential Compression Device (SCD) *Heparin 5000 units SQ BID 3-4 Higher Order ONE of the following medications: *Heparin 5000 units SQ TID *Enoxaparin/Lovenox 40 mg SQ daily (WT < 150 kg, CrCl > 30 mL/min) *Enoxaparin/Lovenox 30 mg SQ daily (WT < 150 kg, CrCl > 10-29 mL/min) *Enoxaparin/Lovenox 30 mg SQ BID (WT < 150 kg, CrCl > 30 mL/min) AND/OR *Sequential Compression Device (SCD) 5 or more Highest Order ONE of the following medications: *Heparin 5000 units SQ TID (Preferred with Epidurals) *Enoxaparin/Lovenox 40 mg SQ daily (WT < 150 kg, CrCl > 30 mL/min) *Enoxaparin/Lovenox 30 mg SQ daily (WT < 150 kg, CrCl > 10-29 mL/min) *Enoxaparin/Lovenox 30 mg SQ BID (WT < 150 kg, CrCl > 30 mL/min) AND *Sequential Compression Device (SCD) Assessment and Plan - Plan A/P - three-month history of abdominal pain/ possible colitis keep NPo for now- continue with IV antibiotics; Cipro and Flagy- consult GI- continue supportive care with IV fluid, pain control. -CAD/ hypertension; resume coreg- hold Cardizem for now. -lung cancer; on radiation/ chemo- under the care of . -diabetes mellitus; hold Metformin; start on accu-check with SSI. -dyslipidemia; resume home meds -DVT prophylaxis with subq lovenox Discussed Condition With: ER physician and the patient. Discharge Planning: home- when has clinically improved- pending GI evaluation.
--- NOTE | 2018-03-17 16:43 | P.CONGI ---
History of Present Illness Consult date: 03/17/18 Consult reason: Abdominal pain Chief complaint: abdominal pain History of Present Illness: This patient is a 77-year-old male with circumflex, coronary artery disease, hypertension, diabetes mellitus and hyperlipidemia. Patient also reports lung cancer diagnosis for which he is undergoing radiation treatment. Patient presented to the emergency room at [facility] on 03/17/2018 with complaint of abdominal pain. On consultation patient states onset of pain 2-3 months ago. Patient points to periumbilical area and describes pain as sharp in nature and tender to palpation. Patient states this pain has been intermittent and denies any alleviating or aggravating factors. Patient states he visited his PCP and received and completed a course of antibiotics. Patient states symptoms resolved after 5 days but returned. Patient denies fever, nausea or vomiting. He endorses generalized weakness but denies any diarrhea or constipation. Patient states he usually has 1-2 soft brown bowel movements daily without any noted bleeding. He denies any family history known for any gastrointestinal disorders. Patient states he is a former smoker of cigarettes but stopped usage 20-25 years ago. Patient states he stopped drinking alcohol 1 month ago and reports that he was a 6 pack/day drinker for many years. Patient states last colonoscopy was 3 years ago and to his recollection there were no abnormal findings. Patient denies ever having had an EGD in the past. 03/17/2018 CT abdomen and pelvis revealed inflammation and wall thickening. Our service has been consulted to evaluate patient's abdominal pain and CT findings. <Paris Farley - Last Filed: 03/17/18 16:22> Review of Systems All other systems reviewed negative except as stated in HPI <Paris Farley - Last Filed: 03/17/18 16:22> PMFSH - History History Provided By: Patient - Medical History Medical History: Medical History (Last Reviewed 03/17/18 @ 15:14 by Georgina Walton MD) Cancer of left lung Coronary artery disease Current non-smoker but past smoking history unknown Diabetes mellitus GERD (gastroesophageal reflux disease) History of spinal stenosis Myocardial infarct, old - Surgical History Surgical History: Surgical History (Last Reviewed 03/17/18 @ 15:15 by Georgina Walton MD) H/O heart artery stent H/O right knee surgery - Family History Family History: Family History (Last Updated 03/17/18 @ 15:15 by Georgina Walton MD) Other No pertinent family history - Tobacco History Second Hand Smoke Exposure: No Smoking Status: Former smoker Tobacco Type: Cigarettes - Alcohol History How Often Do You Have a Drink Containing Alcohol: Monthly or less - Substance Use History Substance History: No History of Abuse - Travel History Recent Travel in the [place] Within the Last 8 Weeks: No Recent Travel Out of the Country Within the Last 8 Weeks: No - Immunization History Tetanus Immunization: >5 Years <Paris Farley - Last Filed: 03/17/18 16:22> - Medical History Medical History: Medical History (Last Reviewed 03/17/18 @ 15:14 by Georgina Walton MD) Cancer of left lung Coronary artery disease Current non-smoker but past smoking history unknown Diabetes mellitus GERD (gastroesophageal reflux disease) History of spinal stenosis Myocardial infarct, old - Surgical History Surgical History: Surgical History (Last Reviewed 03/17/18 @ 15:15 by Georgina Walton MD) H/O heart artery stent H/O right knee surgery - Family History Family History: Family History (Last Updated 03/17/18 @ 15:15 by Georgina Walton MD) Other No pertinent family history <Leia Briceno - Last Filed: 03/17/18 18:32> Medications and Allergies Active Medications: Active Medications Atorvastatin Calcium (Lipitor) 80 mg PO DAILY NIKKI Carvedilol (Coreg) 6.25 mg PO BID NIKKI Dextrose (D50w Vial) 50 ml IV.PUSH UNSCH PRN PRN Reason: PER HYPOGLYCEMIA PROTOCOL Ezetimibe (Zetia) 10 mg PO DAILY NIKKI Enoxaparin Sodium (Lovenox Inj) 40 mg SQ DAILY NIKKI Glucagon (Glucagon Inj) 1 mg OTHER PRN PRN PRN Reason: for Hypoglycemia Protocol Metronidazole/Sodium Chloride (Flagyl 500 Mg Inj) 100 mls @ 100 mls/hr IV.SIG Q8H NIKKI Sodium Chloride (Ns Inj) 1,000 mls @ 100 mls/hr IV.CONT .Q10H NIKKI Ciprofloxacin/Dextrose (Cipro 400 Mg/200 Ml Inj) 400 mg in 200 mls @ 200 mls/ hr IV.SIG Q12H NIKKI Insulin Aspart (Novolog Insulin Correctional Sugar Inj) 0 unit SQ ACHS NIKKI; Protocol Morphine Sulfate (Morphine Inj) 2 mg IV.PUSH Q4H PRN PRN Reason: PAIN SCALE 1 TO 10 Ondansetron HCl (Zofran Inj) 4 mg IV.PUSH Q8H PRN PRN Reason: nausea Sodium Chloride (Ns Flush) 2 ml IV.FLUSH PRN PRN PRN Reason: FLUSH AFTER USING IV ACCESS Tamsulosin HCl (Flomax) 0.4 mg PO DAILY [facility] <Paris Farley - Last Filed: 03/17/18 16:22> Active Medications: Active Medications Atorvastatin Calcium (Lipitor) 80 mg PO DAILY [facility] Carvedilol (Coreg) 6.25 mg PO BID [facility] Dextrose (D50w Vial) 50 ml IV.PUSH UNSCH PRN PRN Reason: PER HYPOGLYCEMIA PROTOCOL Ezetimibe (Zetia) 10 mg PO DAILY [facility] Enoxaparin Sodium (Lovenox Inj) 40 mg SQ DAILY [facility] Glucagon (Glucagon Inj) 1 mg OTHER PRN PRN PRN Reason: for Hypoglycemia Protocol Metronidazole/Sodium Chloride (Flagyl 500 Mg Inj) 100 mls @ 100 mls/hr IV.SIG Q8H NIKKI Sodium Chloride (Ns Inj) 1,000 mls @ 100 mls/hr IV.CONT .Q10H [facility] Last Infusion: 03/17/18 18:17 Dose: 100 mls/hr Ciprofloxacin/Dextrose (Cipro 400 Mg/200 Ml Inj) 400 mg in 200 mls @ 200 mls/ hr IV.SIG Q12H NIKKI Insulin Aspart (Novolog Insulin Correctional Sugar Inj) 0 unit SQ ACHS [facility]; Protocol Last Admin: 03/17/18 17:31 Dose: Not Given Morphine Sulfate (Morphine Inj) 2 mg IV.PUSH Q4H PRN PRN Reason: PAIN SCALE 1 TO 10 Ondansetron HCl (Zofran Inj) 4 mg IV.PUSH Q8H PRN PRN Reason: nausea Pantoprazole Sodium (Protonix Inj) 40 mg IV.PUSH Q24H NIKKI Sodium Chloride (Ns Flush) 2 ml IV.FLUSH PRN PRN PRN Reason: FLUSH AFTER USING IV ACCESS Tamsulosin HCl (Flomax) 0.4 mg PO DAILY [facility] <Leia Briceno - Last Filed: 03/17/18 18:32> Allergies Allergy/AdvReac Type Severity Reaction Status Date / Time acetaminophen Allergy Severe Rash Verified 03/17/18 12:22 oxycodone Allergy Severe Rash Verified 03/17/18 12:22 Home Medications Medication Instructions Recorded Confirmed Type aspirin [Aspirin Low Dose] 81 mg PO BID 01/02/18 03/17/18 History carvedilol 6.25 mg PO BID 01/02/18 03/17/18 History diltiazem HCl 300 mg PO DAILY 01/02/18 03/17/18 History ezetimibe [Zetia] 10 mg PO DAILY 01/02/18 03/17/18 History glucosamine-chondroitin [Osteo 2 tab PO DAILY 01/02/18 03/17/18 History Bi-Flex] metformin 500 mg PO TID 01/02/18 03/17/18 History omeprazole 20 mg PO BID 01/02/18 03/17/18 History rosuvastatin 40 mg PO DAILY 01/02/18 03/17/18 History tamsulosin 0.4 mg PO DAILY 01/02/18 03/17/18 History Exam Vital signs: Vital Signs 03/17/18 11:57 03/17/18 12:19 03/17/18 12:30 Temperature 98.9 F Pulse Rate 114 H 114 H Respiratory Rate 18 20 Blood Pressure 135/85 154/78 H Pulse Oximetry 96 96 95 03/17/18 15:31 Temperature Pulse Rate 108 H Respiratory Rate 19 Blood Pressure 109/66 Pulse Oximetry 94 L Intake & Output 03/16/18 03/17/18 03/17/18 18:59 06:59 18:59 Intake Total 100 / 100 Balance 100 / 100 Weight 75.75 kg Intake: IV 100 / 100 Flagyl 500 MG Inj 100 ML @ 100 100 / 100 mls/hr IV.SIG ONCE ONE Rx#: [id number] - Constitutional no acute distress - Routine HEENT Exam Head: Present: normocephalic - Routine Respiratory Exam Present: CTA bilaterally. Absent: accessory muscle use - Routine Cardiovascular Exam Present: RRR - Routine Abdominal Exam Present: soft, normoactive bowel sounds, tenderness, guarding. Absent: distended, firm Comments: Tenderness and guarding periumbilical region - Routine Extremities Exam Present: full ROM, pulses intact. Absent: edema - Routine Skin Exam Present: dry, warm - Routine Neurological Exam Present: alert, oriented X3 <Farley,Paris - Last Filed: 03/17/18 16:22> Vital signs: Vital Signs 03/17/18 11:57 03/17/18 12:19 03/17/18 12:30 Temperature 98.9 F Pulse Rate 114 H 114 H Respiratory Rate 18 20 Blood Pressure 135/85 154/78 H Pulse Oximetry 96 96 95 03/17/18 15:31 03/17/18 17:39 03/17/18 18:14 Temperature Pulse Rate 108 H 115 H Respiratory Rate 19 18 16 Blood Pressure 109/66 139/63 Pulse Oximetry 94 L 92 L Intake & Output 03/16/18 03/17/18 03/17/18 18:59 06:59 18:59 Intake Total 1200 / 1200 Balance 1200 / 1200 Weight 75.75 kg Intake: IV 1200 / 1200 Cipro 200 MG/100 ML Inj 200 mg 100 / 100 In 100 ml @ 100 mls/hr IV.SIG ONCE ONE Rx#:[id number] Flagyl 500 MG Inj 100 ML @ 100 100 / 100 mls/hr IV.SIG ONCE ONE Rx#: [id number] <Leia Briceno - Last Filed: 03/17/18 18:32> Results - Labs CBC & Chem 7: 03/17/18 12:31 03/17/18 12:31 Labs: Laboratory Results - last 24 hr 03/17/18 03/17/18 03/17/18 12:31 12:31 12:31 WBC 13.3 H RBC 4.35 L Hgb 12.1 L Hct 38.1 L MCV 87.4 MCH 27.9 MCHC 31.9 L RDW 15.9 Plt Count 450 MPV 7.9 Neut % (Auto) 83.2 H Lymph % (Auto) 8.2 L [place] % (Auto) 7.7 Eos % (Auto) 0.2 Baso % (Auto) 0.7 Neut # (Auto) 11.1 H Lymph # (Auto) 1.1 [place] # (Auto) 1.0 H Eos # (Auto) 0.0 Baso # (Auto) 0.1 WBC Differential . Differential Comment Auto diff final PT 12.1 H INR 1.2 APTT 29.2 Sodium 139 Potassium 3.6 Chloride 101 Carbon Dioxide 27.5 Anion Gap 11 BUN 10 Creatinine 1.21 Estimated GFR 58 L Random Glucose 119 H Calcium 9.5 Magnesium 1.5 Total Bilirubin 0.3 AST 18 ALT 12 Alkaline Phosphatase 78 Total Protein 8.0 Albumin 2.7 L Lipase 69 L - Imaging Impressions Abdomen/Pelvis CT 03/17/18 12:16 CONCLUSION: 1. Abnormal loops of distal small bowel in the right midabdomen with wall thickening and surrounding inflammatory change. This is nonspecific and could be infectious or inflammatory. This area was unremarkable on the recent PET/CT dated 01/27/2018. <Paris Farley - Last Filed: 03/17/18 16:22> - Labs CBC & Chem 7: 03/17/18 12:31 03/17/18 12:31 Labs: Laboratory Results - last 24 hr 03/17/18 03/17/18 03/17/18 12:31 12:31 12:31 WBC 13.3 H RBC 4.35 L Hgb 12.1 L Hct 38.1 L MCV 87.4 MCH 27.9 MCHC 31.9 L RDW 15.9 Plt Count 450 MPV 7.9 Neut % (Auto) 83.2 H Lymph % (Auto) 8.2 L [place] % (Auto) 7.7 Eos % (Auto) 0.2 Baso % (Auto) 0.7 Neut # (Auto) 11.1 H Lymph # (Auto) 1.1 [place] # (Auto) 1.0 H Eos # (Auto) 0.0 Baso # (Auto) 0.1 WBC Differential . Differential Comment Auto diff final PT 12.1 H INR 1.2 APTT 29.2 Sodium 139 Potassium 3.6 Chloride 101 Carbon Dioxide 27.5 Anion Gap 11 BUN 10 Creatinine 1.21 Estimated GFR 58 L POC Glucose Random Glucose 119 H Calcium 9.5 Magnesium 1.5 Total Bilirubin 0.3 AST 18 ALT 12 Alkaline Phosphatase 78 Total Protein 8.0 Albumin 2.7 L Lipase 69 L 03/17/18 17:16 WBC RBC Hgb Hct MCV MCH MCHC RDW Plt Count MPV Neut % (Auto) Lymph % (Auto) [place] % (Auto) Eos % (Auto) Baso % (Auto) Neut # (Auto) Lymph # (Auto) [place] # (Auto) Eos # (Auto) Baso # (Auto) WBC Differential Differential Comment PT INR APTT Sodium Potassium Chloride Carbon Dioxide Anion Gap BUN Creatinine Estimated GFR POC Glucose 98 Random Glucose Calcium Magnesium Total Bilirubin AST ALT Alkaline Phosphatase Total Protein Albumin Lipase - Imaging Impressions Abdomen/Pelvis CT 03/17/18 12:16 CONCLUSION: 1. Abnormal loops of distal small bowel in the right midabdomen with wall thickening and surrounding inflammatory change. This is nonspecific and could be infectious or inflammatory. This area was unremarkable on the recent PET/CT dated 01/27/2018. <Leia Briceno - Last Filed: 03/17/18 18:32> Assessment and Plan (1) Colitis Status: Acute Code(s): K52.9 - Noninfective gastroenteritis and colitis, unspecified - Plan This patient is a 77-year-old male with circumflex, coronary artery disease, hypertension, diabetes mellitus and hyperlipidemia. Patient also reports lung cancer diagnosis for which he is undergoing radiation treatment. Patient presented to the emergency room at [facility] on 03/17/2018 with complaint of abdominal pain. On consultation, patient states onset of pain 2-3 months ago. Patient points to periumbilical area and describes pain as sharp in nature and tender to palpation. Patient states this pain has been intermittent and denies any alleviating or aggravating factors. Patient states he visited his PCP and received and completed a course of antibiotics. Patient states symptoms resolved after 5 days but returned. Patient denies fever, nausea or vomiting. He endorses generalized weakness but denies any diarrhea or constipation. Patient states he usually has 1-2 soft brown bowel movements daily without any noted bleeding. He denies any family history known for any gastrointestinal disorders. Patient states he is a former smoker of cigarettes but stopped usage 20-25 years ago. Patient states he stopped drinking alcohol 1 month ago and reports that he was a 6 pack/day drinker for many years. Patient states last colonoscopy was 3 years ago and to his recollection there were no abnormal findings. Patient denies ever having had an EGD in the past. 03/17/2018 CT abdomen and pelvis revealed inflammation and wall thickening. Our service has been consulted to evaluate patient's abdominal pain and CT findings. Colitis 03/17/2018 CT abdomen and pelvis:. Abnormal loops of distal small bowel in the right midabdomen with wall thickening and surrounding inflammatory changes. This is nonspecific and could be infectious or inflammatory. This area was unremarkable on the recent PET/CT dated 01/27/2018. 03/17/2018 WBC 13.3 hemoglobin 12.1 hematocrit 38.1 Plan -N.p.o. for now -Cipro 400 mg IV every 12 -Flagyl 500 mg IV q. 8 -Analgesia and antiemetics as per attending -PPI -Monitor labs -Continue IV hydration -Supportive care -Further recommendations to follow This patient has been seen by myself and Dr. Briceno and this note is written on her behalf - Attending Attestation Dr. Briceno <Paris Farley - Last Filed: 03/17/18 16:22> (1) Colitis Status: Acute Code(s): K52.9 - Noninfective gastroenteritis and colitis, unspecified - Attending Attestation seen, examined agree with above patient receiving radiation and chemotherapy for lung cancer -last radiation today <Leia Briceno - Last Filed: 03/17/18 18:32>
[2018-03-17] MEDS: Insulin NovoLOG Aspart Correctional Sugar Inj SQ SCH ×2 (17:31→21:12)
[2018-03-17] MEDS: Sod Chloride 0.9% Inj 1,000 ML IV.CONT SCH (17:38)
[2018-03-17] MEDS: Pantoprazole Inj 40 MG Vial IV.PUSH SCH (19:01)
[2018-03-17] MEDS: Morphine Sulfate Inj 2 MG/ML Vial IV.PUSH PRN ×2 (19:02→23:58)
[2018-03-17] MEDS: Carvedilol 6.25 MG Tablet PO SCH (21:06)
[2018-03-18] MEDS ORDERED: Metoprolol Inj 5 MG/5 ML Vial IV.PUSH ONE (04:02)
[2018-03-18] MEDS: Ciprofloxacin 400 MG/200 ML 400 MG/200 ML PIGGYBACK IV.SIG SCH ×2 (04:16→15:06)
[2018-03-18] MEDS: Sod Chloride 0.9% Inj 1,000 ML IV.CONT SCH ×2 (04:24→23:40)
[2018-03-18 05:10] LABS: Baso % (Auto) 0.4 % (0.0-2.0); Eos % (Auto) 0.2 % (0.0-4.0); Hematocrit 33.6 % (39.0-51.0); Hemoglobin 10.8 gm/dL (13.0-17.0); Lymph # (Auto) 0.8 th/mm3 (1.0-4.8); Lymph % (Auto) 7.1 % (9.0-44.0); Mean Corpuscular HGB Conc 32.1 % (32.0-36.0); Mean Corpuscular Hemoglobin 27.5 pg (27.0-34.0); Mean Corpuscular Volume 85.7 fL (80.0-100.0); Mean Platelet Volume 7.3 fL (7.0-11.0); Mono # (Auto) 1.1 th/mm3 (0.0-0.9); Mono % (Auto) 9.6 % (0.0-8.0); Neut # (Auto) 9.8 th/mm3 (1.8-7.7); Neut % (Auto) 82.7 % (16.0-70.0); Platelet Count 360 th/mm3 (150-450); Red Blood Count 3.92 mil/mm3 (4.50-5.90); Red Cell Distribution Width 15.9 % (11.6-17.2); White Blood Count 11.9 th/mm3 (4.0-11.0)
[2018-03-18] MEDS: Carvedilol 6.25 MG Tablet PO SCH ×3 (07:30→20:58)
[2018-03-18] MEDS: Enoxaparin Inj 40 MG/0.4 ML Syringe SQ SCH ×2 (07:37→10:26)
[2018-03-18] MEDS: Ezetimibe 10 MG Tablet PO SCH ×2 (07:38→10:27)
[2018-03-18] MEDS: Morphine Sulfate Inj 2 MG/ML Vial IV.PUSH PRN ×3 (10:28→20:52)
--- NOTE | 2018-03-18 10:56 | P.PNIM ---
Subjective Interval history: Patient complains of abdominal pain. He says his abdomen hurts when he coughs. Physical Exam Vital signs: Vital Signs 03/17/18 11:57 03/17/18 12:19 03/17/18 12:30 Temperature 98.9 F Pulse Rate 114 H 114 H Respiratory Rate 18 20 Blood Pressure 135/85 154/78 H Pulse Oximetry 96 96 95 03/17/18 15:31 03/17/18 17:39 03/17/18 18:14 Temperature Pulse Rate 108 H 115 H Respiratory Rate 19 18 16 Blood Pressure 109/66 139/63 Pulse Oximetry 94 L 92 L 03/17/18 20:00 03/17/18 20:40 03/17/18 21:09 Temperature 99.1 F Pulse Rate 115 H 119 H Respiratory Rate 16 16 Blood Pressure 120/79 Pulse Oximetry 94 L 03/17/18 23:58 03/18/18 00:00 03/18/18 00:01 Temperature 100.2 F H Pulse Rate 110 H Respiratory Rate 16 Blood Pressure 109/74 Pulse Oximetry 88 L 94 L 94 L 03/18/18 00:32 03/18/18 04:14 03/18/18 04:47 Temperature 99.0 F Pulse Rate 108 H 120 H 114 H Respiratory Rate 16 Blood Pressure 108/65 Pulse Oximetry 96 03/18/18 07:23 03/18/18 07:25 03/18/18 07:38 Temperature 98.6 F Pulse Rate 101 H 108 H Respiratory Rate 18 Blood Pressure 108/72 Pulse Oximetry 95 95 Intake & Output 03/17/18 03/18/18 03/18/18 18:59 06:59 18:59 Intake Total 1200 / 1200 1300 / 1300 Output Total 300 / 300 Balance 1200 / 1200 1000 / 1000 Weight 75.75 kg 76 kg Intake: IV 1200 / 1200 1300 / 1300 NS Inj 1,000 ML @ 100 mls/hr IV 1000 / 1000 .CONT .Q10H [facility] Rx#:[id number] Cipro 200 MG/100 ML Inj 200 mg 100 / 100 In 100 ml @ 100 mls/hr IV.SIG ONCE ONE Rx#:[id number] Cipro 400 MG/200 ML Inj 400 mg 200 / 200 In 200 ml @ 200 mls/hr IV.SIG Q12H [facility] Rx#:[id number] Flagyl 500 MG Inj 100 ML @ 100 100 / 100 100 / 100 mls/hr IV.SIG Q8H [facility] Rx#: [id number] Output: Urine 300 / 300 Other: Date of Last Bowel Movement 03/16/18 Narrative: General patient complains of abdominal pain. HEENT extraocular movements are intact, clear oropharyngeal mucosa, no JVD Cardiovascular S1-S2 audible, RRR, no murmurs rubs or gallops Respiratory clear to auscultation bilaterally Abdomen soft, tenderness to palpation mostly around the umbilical area. Extremities no edema 2+ distal pulses in bilateral upper and lower extremities Neuro cranial nerves II through XII intact Results - Labs CBC & Chem 7: 03/18/18 04:54 03/17/18 12:31 Laboratory Results - last 24 hr 03/17/18 03/17/18 03/17/18 12:31 12:31 12:31 WBC 13.3 H RBC 4.35 L Hgb 12.1 L Hct 38.1 L MCV 87.4 MCH 27.9 MCHC 31.9 L RDW 15.9 Plt Count 450 MPV 7.9 Neut % (Auto) 83.2 H Lymph % (Auto) 8.2 L [place] % (Auto) 7.7 Eos % (Auto) 0.2 Baso % (Auto) 0.7 Neut # (Auto) 11.1 H Lymph # (Auto) 1.1 [place] # (Auto) 1.0 H Eos # (Auto) 0.0 Baso # (Auto) 0.1 WBC Differential . Differential Comment Auto diff final PT 12.1 H INR 1.2 APTT 29.2 Sodium 139 Potassium 3.6 Chloride 101 Carbon Dioxide 27.5 Anion Gap 11 BUN 10 Creatinine 1.21 Estimated GFR 58 L POC Glucose Random Glucose 119 H Calcium 9.5 Magnesium 1.5 Total Bilirubin 0.3 AST 18 ALT 12 Alkaline Phosphatase 78 Total Protein 8.0 Albumin 2.7 L Lipase 69 L 03/17/18 03/17/18 03/18/18 17:16 21:11 04:54 WBC 11.9 H RBC 3.92 L Hgb 10.8 L Hct 33.6 L MCV 85.7 MCH 27.5 MCHC 32.1 RDW 15.9 Plt Count 360 MPV 7.3 Neut % (Auto) 82.7 H Lymph % (Auto) 7.1 L [place] % (Auto) 9.6 H Eos % (Auto) 0.2 Baso % (Auto) 0.4 Neut # (Auto) 9.8 H Lymph # (Auto) 0.8 L [place] # (Auto) 1.1 H Eos # (Auto) 0.0 Baso # (Auto) 0.0 WBC Differential . Differential Comment Auto diff final PT INR APTT Sodium Potassium Chloride Carbon Dioxide Anion Gap BUN Creatinine Estimated GFR POC Glucose 98 99 Random Glucose Calcium Magnesium Total Bilirubin AST ALT Alkaline Phosphatase Total Protein Albumin Lipase - Imaging Impressions Abdomen/Pelvis CT 03/17/18 12:16 CONCLUSION: 1. Abnormal loops of distal small bowel in the right midabdomen with wall thickening and surrounding inflammatory change. This is nonspecific and could be infectious or inflammatory. This area was unremarkable on the recent PET/CT dated 01/27/2018. Assessment and Plan - Plan This patient is a 77-year-old male with a diagnosis of lung cancer. He also has coronary artery disease, hypertension, dyslipidemia, diabetes mellitus type 2. The patient presented to our emergency room with complaints of abdominal pain that has been ongoing for approximately 3 months. In the emergency department a CT scan of the abdomen and pelvis showed findings consistent with colitis. 1. Sepsis possibly secondary to acute colitis The patient presented with abdominal pain and CT scan of the abdomen pelvis shows findings consistent with colitis. WBC count was elevated at 13, the patient is tachycardic. Patient had a febrile episode yesterday. We will obtain blood cultures GI following Continue IV antibiotics with Cipro and Flagyl. Cultures will be followed up. Continue IV fluids N.p.o. Morphine as needed for pain. 2. Coronary artery disease/hypertension Continue Coreg. Blood pressure currently under control. 3. Lung cancer Patient is under the care of Dr. Lynch and is on radiation/chemo 4. Diabetes mellitus type 2 Continue low-dose insulin sliding scale. Continue Accu-Cheks. 5. Dyslipidemia Continue statin Lovenox for DVT prophylaxis
[2018-03-18] MEDS: Insulin NovoLOG Aspart Correctional Sugar Inj SQ SCH ×4 (11:12→23:33)
--- NOTE | 2018-03-18 11:36 | P.PNGI ---
Subjective Interval history: Pt is resting in bed Complaining of some lower mid abdominal pain, states improving some Denies nausea, vomiting Last BM was Friday <PeterfranklinCassie - Last Filed: 03/18/18 11:27> Physical Exam Vital signs: Vital Signs 03/17/18 11:57 03/17/18 12:19 03/17/18 12:30 Temperature 98.9 F Pulse Rate 114 H 114 H Respiratory Rate 18 20 Blood Pressure 135/85 154/78 H Pulse Oximetry 96 96 95 03/17/18 15:31 03/17/18 17:39 03/17/18 18:14 Temperature Pulse Rate 108 H 115 H Respiratory Rate 19 18 16 Blood Pressure 109/66 139/63 Pulse Oximetry 94 L 92 L 03/17/18 20:00 03/17/18 20:40 03/17/18 21:09 Temperature 99.1 F Pulse Rate 115 H 119 H Respiratory Rate 16 16 Blood Pressure 120/79 Pulse Oximetry 94 L 03/17/18 23:58 03/18/18 00:00 03/18/18 00:01 Temperature 100.2 F H Pulse Rate 110 H Respiratory Rate 16 Blood Pressure 109/74 Pulse Oximetry 88 L 94 L 94 L 03/18/18 00:32 03/18/18 04:14 03/18/18 04:47 Temperature 99.0 F Pulse Rate 108 H 120 H 114 H Respiratory Rate 16 Blood Pressure 108/65 Pulse Oximetry 96 03/18/18 07:23 03/18/18 07:25 03/18/18 07:38 Temperature 98.6 F Pulse Rate 101 H 108 H Respiratory Rate 18 Blood Pressure 108/72 Pulse Oximetry 95 95 Intake & Output 03/17/18 03/18/18 03/18/18 18:59 06:59 18:59 Intake Total 1200 / 1200 1300 / 1300 Output Total 300 / 300 Balance 1200 / 1200 1000 / 1000 Weight 75.75 kg 76 kg Intake: IV 1200 / 1200 1300 / 1300 NS Inj 1,000 ML @ 100 mls/hr IV 1000 / 1000 .CONT .Q10H [facility] Rx#:[id number] Cipro 200 MG/100 ML Inj 200 mg 100 / 100 In 100 ml @ 100 mls/hr IV.SIG ONCE ONE Rx#:[id number] Cipro 400 MG/200 ML Inj 400 mg 200 / 200 In 200 ml @ 200 mls/hr IV.SIG Q12H [facility] Rx#:[id number] Flagyl 500 MG Inj 100 ML @ 100 100 / 100 100 / 100 mls/hr IV.SIG Q8H [facility] Rx#: [id number] Output: Urine 300 / 300 Other: Date of Last Bowel Movement 03/16/18 - Constitutional no acute distress - Routine HEENT Exam Head: Present: normocephalic, atraumatic - Routine Respiratory Exam Absent: accessory muscle use - Routine Cardiovascular Exam Present: RRR - Routine Abdominal Exam Present: soft, normoactive bowel sounds, tenderness. Absent: distended Comments: mid lower abdominal tenderness - Routine Skin Exam Present: dry, warm - Routine Neurological Exam Present: alert, oriented X3 <Cassie David - Last Filed: 03/18/18 11:27> Vital signs: Vital Signs 03/17/18 20:00 03/17/18 20:40 03/17/18 21:09 Temperature 99.1 F Pulse Rate 115 H 119 H Respiratory Rate 16 16 Blood Pressure 120/79 Pulse Oximetry 94 L 03/17/18 23:58 03/18/18 00:00 03/18/18 00:01 Temperature 100.2 F H Pulse Rate 110 H Respiratory Rate 16 Blood Pressure 109/74 Pulse Oximetry 88 L 94 L 94 L 03/18/18 00:32 03/18/18 04:14 03/18/18 04:47 Temperature 99.0 F Pulse Rate 108 H 120 H 114 H Respiratory Rate 16 Blood Pressure 108/65 Pulse Oximetry 96 03/18/18 07:23 03/18/18 07:25 03/18/18 07:38 Temperature 98.6 F Pulse Rate 101 H 108 H Respiratory Rate 18 Blood Pressure 108/72 Pulse Oximetry 95 95 03/18/18 08:00 03/18/18 12:00 03/18/18 17:00 Temperature 99 F 99.4 F Pulse Rate 106 H 95 H 116 H Respiratory Rate 18 18 Blood Pressure 95/63 L 106/68 Pulse Oximetry 96 96 Intake & Output 03/18/18 03/18/18 03/19/18 06:59 18:59 06:59 Intake Total 1300 / 1300 0 / 0 Output Total 300 / 300 Balance 1000 / 1000 0 / 0 Weight 76 kg Intake: IV 1300 / 1300 0 / 0 NS Inj 1,000 ML @ 100 mls/hr IV 1000 / 1000 .CONT .Q10H [facility] Rx#:[id number] Cipro 400 MG/200 ML Inj 400 mg 200 / 200 In 200 ml @ 200 mls/hr IV.SIG Q12H [facility] Rx#:[id number] Flagyl 500 MG Inj 100 ML @ 100 100 / 100 0 / 0 mls/hr IV.SIG Q8H [facility] Rx#: [id number] Output: Urine 300 / 300 Other: Date of Last Bowel Movement 03/16/18 <Leia Brcieno - Last Filed: 03/18/18 19:46> Results - Labs CBC & Chem 7: 03/18/18 04:54 03/17/18 12:31 Laboratory Results - last 24 hr 03/17/18 03/17/18 03/17/18 12:31 12:31 12:31 WBC 13.3 H RBC 4.35 L Hgb 12.1 L Hct 38.1 L MCV 87.4 MCH 27.9 MCHC 31.9 L RDW 15.9 Plt Count 450 MPV 7.9 Neut % (Auto) 83.2 H Lymph % (Auto) 8.2 L [place] % (Auto) 7.7 Eos % (Auto) 0.2 Baso % (Auto) 0.7 Neut # (Auto) 11.1 H Lymph # (Auto) 1.1 [place] # (Auto) 1.0 H Eos # (Auto) 0.0 Baso # (Auto) 0.1 WBC Differential . Differential Comment Auto diff final PT 12.1 H INR 1.2 APTT 29.2 Sodium 139 Potassium 3.6 Chloride 101 Carbon Dioxide 27.5 Anion Gap 11 BUN 10 Creatinine 1.21 Estimated GFR 58 L POC Glucose Random Glucose 119 H Calcium 9.5 Magnesium 1.5 Total Bilirubin 0.3 AST 18 ALT 12 Alkaline Phosphatase 78 Total Protein 8.0 Albumin 2.7 L Lipase 69 L 03/17/18 03/17/18 03/18/18 17:16 21:11 04:54 WBC 11.9 H RBC 3.92 L Hgb 10.8 L Hct 33.6 L MCV 85.7 MCH 27.5 MCHC 32.1 RDW 15.9 Plt Count 360 MPV 7.3 Neut % (Auto) 82.7 H Lymph % (Auto) 7.1 L [place] % (Auto) 9.6 H Eos % (Auto) 0.2 Baso % (Auto) 0.4 Neut # (Auto) 9.8 H Lymph # (Auto) 0.8 L [place] # (Auto) 1.1 H Eos # (Auto) 0.0 Baso # (Auto) 0.0 WBC Differential . Differential Comment Auto diff final PT INR APTT Sodium Potassium Chloride Carbon Dioxide Anion Gap BUN Creatinine Estimated GFR POC Glucose 98 99 Random Glucose Calcium Magnesium Total Bilirubin AST ALT Alkaline Phosphatase Total Protein Albumin Lipase 03/18/18 11:06 WBC RBC Hgb Hct MCV MCH MCHC RDW Plt Count MPV Neut % (Auto) Lymph % (Auto) [place] % (Auto) Eos % (Auto) Baso % (Auto) Neut # (Auto) Lymph # (Auto) [place] # (Auto) Eos # (Auto) Baso # (Auto) WBC Differential Differential Comment PT INR APTT Sodium Potassium Chloride Carbon Dioxide Anion Gap BUN Creatinine Estimated GFR POC Glucose 86 Random Glucose Calcium Magnesium Total Bilirubin AST ALT Alkaline Phosphatase Total Protein Albumin Lipase - Imaging Impressions Abdomen/Pelvis CT 03/17/18 12:16 CONCLUSION: 1. Abnormal loops of distal small bowel in the right midabdomen with wall thickening and surrounding inflammatory change. This is nonspecific and could be infectious or inflammatory. This area was unremarkable on the recent PET/CT dated 01/27/2018. <Cassie David - Last Filed: 03/18/18 11:27> - Labs CBC & Chem 7: 03/18/18 04:54 03/17/18 12:31 Laboratory Results - last 24 hr 03/17/18 03/18/18 03/18/18 21:11 04:54 11:06 WBC 11.9 H RBC 3.92 L Hgb 10.8 L Hct 33.6 L MCV 85.7 MCH 27.5 MCHC 32.1 RDW 15.9 Plt Count 360 MPV 7.3 Neut % (Auto) 82.7 H Lymph % (Auto) 7.1 L [place] % (Auto) 9.6 H Eos % (Auto) 0.2 Baso % (Auto) 0.4 Neut # (Auto) 9.8 H Lymph # (Auto) 0.8 L [place] # (Auto) 1.1 H Eos # (Auto) 0.0 Baso # (Auto) 0.0 WBC Differential . Differential Comment Auto diff final POC Glucose 99 86 03/18/18 03/18/18 13:23 17:19 WBC RBC Hgb Hct MCV MCH MCHC RDW Plt Count MPV Neut % (Auto) Lymph % (Auto) [place] % (Auto) Eos % (Auto) Baso % (Auto) Neut # (Auto) Lymph # (Auto) [place] # (Auto) Eos # (Auto) Baso # (Auto) WBC Differential Differential Comment POC Glucose 88 105 <Leia Briceno - Last Filed: 03/18/18 19:46> Assessment and Plan (1) Colitis Status: Inactive Code(s): K52.9 - Noninfective gastroenteritis and colitis, unspecified - Plan Assessment: - Colitis-- infectious vs inflammatory Presented with mid, lower abdominal pain, states intermittent for the past 3 months but became progressively unbearable after radiation on Friday. Denies any associated nausea, vomiting, changes in bowel habits. States last BM was on Friday. Denies any hematochezia or melena. CT abd/pelvis W IV contrast (03/17) Abnormal loops of distal small bowel in the right midabdomen with wall thickening and surrounding inflammatory change. This is nonspecific and could be infectious or inflammatory. This area was unremarkable on the recent PET/CT dated 01/27/2018. Colonoscopy (Jan 2014) by Dr. hughes --> Mild diverticulosis in the sigmoid colon. Colon mucosa was otherwise normal. Internal hemorrhoids. Recommended for repeat exam in 10 years. Has never had EGD - Recent diagnosis of lung cancer- began radiation therapy on Friday, today will be his third treatment. Planned to start chemotherapy on . - History of ETOH abuse- States he was drinking at least a six pack of beer a day until a month ago when he was told he need to quit because of the interaction it was going to have with chemotherapy. Plan: Advance to clear liquid diet Continue Cipro/Flagyl IV fluids Pain medication Colonoscopy inpt vs outpt pending course Given history of ETOH abuse would likely benefit from EGD at some point Further recommendations pending hospitalization course Pt has been seen and examined by myself and Dr. Briceno and this note is written on her behalf <Cassie David - Last Filed: 03/18/18 11:27> (1) Colitis Status: Inactive Code(s): K52.9 - Noninfective gastroenteritis and colitis, unspecified - Attending Attestation seen, examined agree with above <Leia Briceno - Last Filed: 03/18/18 19:46>
[2018-03-18] MEDS: Pantoprazole Inj 40 MG Vial IV.PUSH SCH (17:34)
--- NOTE | 2018-03-18 19:07 | ECG ---
Date Performed: 03/18/2018 Time Performed: 01:02:50 PTAGE: 77 years EKG: Sinus tachycardia with PAC(s) PREVIOUS TRACING : 01/02/2018 08.58 Since the previous tracing, no significant change not ed DOCTOR: Jaswant Martinez Interpretating Date/Time 03/18/2018 19:05:57
[2018-03-19] MEDS: Morphine Sulfate Inj 2 MG/ML Vial IV.PUSH PRN ×4 (03:48→21:16)
[2018-03-19] MEDS: Ciprofloxacin 400 MG/200 ML 400 MG/200 ML PIGGYBACK IV.SIG SCH (03:51)
--- NOTE | 2018-03-19 06:03 | XR ---
EXAM DATE: 03/19/2018 5:50 AM EST AGE/SEX: 77 years / Male INDICATIONS: Shortness of breath and cough. CLINICAL DATA: This is the patient's subsequent encounter. Patient reports that signs and symptoms h ave been present for 2 days and indicates a pain score of 0/10. MEDICAL/SURGICAL HISTORY: Carcinoma, lung. None. [place] [facility] [place]. . FINDINGS: Increased size of a right suprahilar mass process. Surrounding infiltrate and infiltrate in the right base. Left lung remains grossly clear. Cardiac contours are stable. CONCLUSION: Worsening opacities in the right lung Electronically signed by: Armand Dhillon MD 03/19/2018 6:01 AM EST
[2018-03-19] MEDS ORDERED: Benzonatate 100 MG Capsule PO PRN (06:15)
[2018-03-19 06:54] LABS: Bilirubin,Urine Negative (Negative); Clarity,Urine Clear (Clear); Color,Urine Yellow (Yellw/Straw); Glucose,Urine (UA) Negative (Negative); Leukocyte Esterase,Urine Trace (Negative); Mucus,Urine Few /lpf (Occasional); Nitrite,Urine Negative (Negative); Specific Gravity,Urine 1.012 (1.002-1.035)
[2018-03-19] MEDS: Insulin NovoLOG Aspart Correctional Sugar Inj SQ SCH ×4 (08:20→22:17)
[2018-03-19] MEDS: Carvedilol 6.25 MG Tablet PO SCH ×2 (08:23→21:16)
[2018-03-19] MEDS: Ezetimibe 10 MG Tablet PO SCH (08:23)
[2018-03-19] MEDS: guaiFENesin 600 MG ER Tablet PO SCH ×2 (08:23→21:16)
[2018-03-19] MEDS: Enoxaparin Inj 40 MG/0.4 ML Syringe SQ SCH (08:26)
--- NOTE | 2018-03-19 14:20 | P.PNGI ---
Subjective Interval history: Patient sitting up in bed Denies nausea or vomiting Reports generalized abdominal pain with palpation Status post radiation treatment today-lung <Paris Farley - Last Filed: 03/19/18 14:11> Physical Exam Vital signs: Vital Signs 03/18/18 17:00 03/18/18 20:00 03/18/18 23:45 Temperature 99.4 F 99.8 F H 98.6 F Pulse Rate 116 H 115 H 106 H Respiratory Rate 18 16 12 Blood Pressure 106/68 120/59 L Pulse Oximetry 96 96 96 03/19/18 02:14 03/19/18 04:00 03/19/18 05:24 Temperature 98.5 F Pulse Rate 105 H 113 H 93 H Respiratory Rate 20 18 Blood Pressure 124/73 Pulse Oximetry 97 03/19/18 08:00 03/19/18 08:11 03/19/18 10:29 Temperature 98.7 F Pulse Rate 106 H 99 H Respiratory Rate 18 Blood Pressure 111/59 L Pulse Oximetry 95 97 03/19/18 12:12 Temperature 98.5 F Pulse Rate 103 H Respiratory Rate 18 Blood Pressure 113/77 Pulse Oximetry 94 L Intake & Output 03/18/18 03/19/18 03/19/18 18:59 06:59 18:59 Intake Total 1960 / 1960 640 / 640 450 / 450 Output Total 800 / 800 850 / 850 Balance 1160 / 1160 -210 / -210 450 / 450 Weight 76.3 kg Intake: IV 1000 / 1000 400 / 400 450 / 450 NS Inj 1,000 ML @ 100 mls/hr IV 1000 / 1000 .CONT .Q10H [facility] Rx#:[id number] Cipro 400 MG/200 ML Inj 400 mg 200 / 200 200 / 200 In 200 ml @ 200 mls/hr IV.SIG Q12H [facility] Rx#:[id number] Levaquin 750 mg Premix Inj 150 150 / 150 ML @ 100 mls/hr IV.SIG Q24H [facility] Rx#:[id number] Flagyl 500 MG Inj 100 ML @ 100 0 / 0 200 / 200 100 / 100 mls/hr IV.SIG Q8H [facility] Rx#: [id number] Oral 960 / 960 240 / 240 Output: Urine 800 / 800 850 / 850 Other: Date of Last Bowel Movement 03/17/18 - Constitutional no acute distress - Routine HEENT Exam Head: Present: normocephalic - Routine Respiratory Exam Present: CTA bilaterally Comments: Patient reports shortness of breath on exertion Diminished breath sounds left lobe - Routine Abdominal Exam Present: soft, normoactive bowel sounds, tenderness. Absent: distended, guarding, firm Comments: Last BM 4 days ago - Routine Extremities Exam Absent: edema - Routine Skin Exam Present: dry, warm - Routine Neurological Exam Present: alert, oriented X3 - Routine Psychiatric Exam Present: normal affect, cooperative <Farley,Paris - Last Filed: 03/19/18 14:11> Vital signs: Vital Signs 03/18/18 23:45 03/19/18 02:14 03/19/18 04:00 Temperature 98.6 F 98.5 F Pulse Rate 106 H 105 H 113 H Respiratory Rate 12 20 Blood Pressure 124/73 Pulse Oximetry 96 97 03/19/18 05:24 03/19/18 08:00 03/19/18 08:11 Temperature 98.7 F Pulse Rate 93 H 106 H 99 H Respiratory Rate 18 18 Blood Pressure 111/59 L Pulse Oximetry 95 03/19/18 10:29 03/19/18 12:12 03/19/18 16:00 Temperature 98.5 F Pulse Rate 103 H 108 H Respiratory Rate 18 Blood Pressure 113/77 Pulse Oximetry 97 94 L 03/19/18 16:50 Temperature 98.9 F Pulse Rate 109 H Respiratory Rate 18 Blood Pressure 130/80 Pulse Oximetry 97 Intake & Output 03/19/18 03/19/18 03/20/18 06:59 18:59 06:59 Intake Total 640 / 640 1470 / 1470 Output Total 850 / 850 740 / 740 Balance -210 / -210 730 / 730 Weight 76.3 kg Intake: IV 400 / 400 450 / 450 Cipro 400 MG/200 ML Inj 400 mg 200 / 200 200 / 200 In 200 ml @ 200 mls/hr IV.SIG Q12H [facility] Rx#:[id number] Levaquin 750 mg Premix Inj 150 150 / 150 ML @ 100 mls/hr IV.SIG Q24H [facility] Rx#:[id number] Flagyl 500 MG Inj 100 ML @ 100 200 / 200 100 / 100 mls/hr IV.SIG Q8H [facility] Rx#: [id number] Oral 240 / 240 1020 / 1020 Output: Urine 850 / 850 740 / 740 Other: # Voids 1 Date of Last Bowel Movement 03/17/18 <VondaLeia cleary - Last Filed: 03/19/18 21:46> Results - Labs CBC & Chem 7: 03/18/18 04:54 03/17/18 12:31 Laboratory Results - last 24 hr 03/18/18 03/18/18 03/19/18 17:19 20:58 06:21 POC Glucose 105 117 H Urine Color Yellow Urine Clarity Clear Urine pH 5.0 Ur Specific [place] 1.012 Urine Protein Negative Urine Glucose (UA) Negative Urine Ketones Trace H Urine Occult Blood Negative Urine Nitrate Negative Urine Bilirubin Negative Urine Urobilinogen Less than 2 Ur Leukocyte Esterase Trace H Urine RBC Less than 1 Urine WBC 1 Urine Mucus Few H Micro UA Comment Culture not ind Ur Microscopic Review Not Reportable Urine Culture Comments Culture not ind 03/19/18 03/19/18 08:13 12:17 POC Glucose 106 118 H Urine Color Urine Clarity Urine pH Ur Specific [place] Urine Protein Urine Glucose (UA) Urine Ketones Urine Occult Blood Urine Nitrate Urine Bilirubin Urine Urobilinogen Ur Leukocyte Esterase Urine RBC Urine WBC Urine Mucus Micro UA Comment Ur Microscopic Review Urine Culture Comments Microbiology 03/18/18 11:27 Blood - Peripheral Aerobic Blood Culture - Preliminary No growth in 1 day 03/18/18 11:27 Blood - Peripheral Anaerobic Blood Culture - Preliminary No growth in 1 day 03/18/18 11:32 Blood - Peripheral Aerobic Blood Culture - Preliminary No growth in 1 day 03/18/18 11:32 Blood - Peripheral Anaerobic Blood Culture - Preliminary No growth in 1 day - Imaging Impressions Chest X-Ray 03/19/18 04:31 CONCLUSION: Worsening opacities in the right lung <Paris Farley - Last Filed: 03/19/18 14:11> - Labs CBC & Chem 7: 03/18/18 04:54 03/17/18 12:31 Laboratory Results - last 24 hr 03/19/18 03/19/18 03/19/18 06:21 08:13 12:17 POC Glucose 106 118 H Urine Color Yellow Urine Clarity Clear Urine pH 5.0 Ur Specific [place] 1.012 Urine Protein Negative Urine Glucose (UA) Negative Urine Ketones Trace H Urine Occult Blood Negative Urine Nitrate Negative Urine Bilirubin Negative Urine Urobilinogen Less than 2 Ur Leukocyte Esterase Trace H Urine RBC Less than 1 Urine WBC 1 Urine Mucus Few H Micro UA Comment Culture not ind Ur Microscopic Review Not Reportable Urine Culture Comments Culture not ind 03/19/18 03/19/18 16:50 21:23 POC Glucose 119 H 117 H Urine Color Urine Clarity Urine pH Ur Specific [place] Urine Protein Urine Glucose (UA) Urine Ketones Urine Occult Blood Urine Nitrate Urine Bilirubin Urine Urobilinogen Ur Leukocyte Esterase Urine RBC Urine WBC Urine Mucus Micro UA Comment Ur Microscopic Review Urine Culture Comments Microbiology 03/18/18 11:27 Blood - Peripheral Aerobic Blood Culture - Preliminary No growth in 1 day 03/18/18 11:27 Blood - Peripheral Anaerobic Blood Culture - Preliminary No growth in 1 day 03/18/18 11:32 Blood - Peripheral Aerobic Blood Culture - Preliminary No growth in 1 day 03/18/18 11:32 Blood - Peripheral Anaerobic Blood Culture - Preliminary No growth in 1 day - Imaging Impressions Chest X-Ray 03/19/18 04:31 CONCLUSION: Worsening opacities in the right lung <Leia Briceno - Last Filed: 03/19/18 21:46> Assessment and Plan (1) Colitis Status: Inactive Code(s): K52.9 - Noninfective gastroenteritis and colitis, unspecified - Plan Assessment: - Colitis-- infectious vs inflammatory Presented with mid, lower abdominal pain, states intermittent for the past 3 months but became progressively unbearable after radiation on Friday. Denies any associated nausea, vomiting, changes in bowel habits. States last BM was on Friday. Denies any hematochezia or melena. CT abd/pelvis W IV contrast (03/17) Abnormal loops of distal small bowel in the right midabdomen with wall thickening and surrounding inflammatory change. This is nonspecific and could be infectious or inflammatory. This area was unremarkable on the recent PET/CT dated 01/27/2018. Colonoscopy (Jan 2014) by Dr. hughes --> Mild diverticulosis in the sigmoid colon. Colon mucosa was otherwise normal. Internal hemorrhoids. Recommended for repeat exam in 10 years. Has never had EGD - Recent diagnosis of lung cancer- began radiation therapy on Friday, today will be his third treatment. Planned to start chemotherapy on . - History of ETOH abuse- States he was drinking at least a six pack of beer a day until a month ago when he was told he need to quit because of the interaction it was going to have with chemotherapy. 03/19/2018 Colitis Patient reports intermittent generalized abdominal tenderness on palpation. Denies any nausea vomiting at this time. Last BM 4 days ago, patient states passing flatus. 03/18/2018 WBC 11.9 hemoglobin 10.8 hematocrit 33.6 Plan -Clear liquid diet -Continue IV antibiotics Levaquin/Flagyl -Pain medication and antiemetics as per attending -Continue PPI -Patient will require EGD/colonoscopy post infection/inflammation -Supportive care -Further recommendations to follow Pt has been seen and examined by myself and Dr. Briceno and this note is written on her behalf - Attending Attestation Dr. Briceno <Paris Farley - Last Filed: 03/19/18 14:11> (1) Colitis Status: Inactive Code(s): K52.9 - Noninfective gastroenteritis and colitis, unspecified - Attending Attestation seen, examined agree with above <Leia Briceno - Last Filed: 03/19/18 21:46>
--- NOTE | 2018-03-19 14:42 | P.PN ---
Subjective Interval history: Follow-up on abdominal pain Nursing reports the patient still having abdominal pain, requiring pain medication. Patient himself says now he just has constant lower abdominal pain. Denies any nausea vomiting. Reports being able to take IV fluids. Nursing reports he has not had a bowel movement in at least 3 days. Physical Exam Vital signs: Vital Signs 03/18/18 17:00 03/18/18 20:00 03/18/18 23:45 Temperature 99.4 F 99.8 F H 98.6 F Pulse Rate 116 H 115 H 106 H Respiratory Rate 18 16 12 Blood Pressure 106/68 120/59 L Pulse Oximetry 96 96 96 03/19/18 02:14 03/19/18 04:00 03/19/18 05:24 Temperature 98.5 F Pulse Rate 105 H 113 H 93 H Respiratory Rate 20 18 Blood Pressure 124/73 Pulse Oximetry 97 03/19/18 08:00 03/19/18 08:11 03/19/18 10:29 Temperature 98.7 F Pulse Rate 106 H 99 H Respiratory Rate 18 Blood Pressure 111/59 L Pulse Oximetry 95 97 03/19/18 12:12 Temperature 98.5 F Pulse Rate 103 H Respiratory Rate 18 Blood Pressure 113/77 Pulse Oximetry 94 L Intake & Output 03/18/18 03/19/18 03/19/18 18:59 06:59 18:59 Intake Total 1960 / 1960 640 / 640 450 / 450 Output Total 800 / 800 850 / 850 Balance 1160 / 1160 -210 / -210 450 / 450 Weight 76.3 kg Intake: IV 1000 / 1000 400 / 400 450 / 450 NS Inj 1,000 ML @ 100 mls/hr IV 1000 / 1000 .CONT .Q10H NIKKI Rx#:[id number] Cipro 400 MG/200 ML Inj 400 mg 200 / 200 200 / 200 In 200 ml @ 200 mls/hr IV.SIG Q12H NIKKI Rx#:[id number] Levaquin 750 mg Premix Inj 150 150 / 150 ML @ 100 mls/hr IV.SIG Q24H NIKKI Rx#:[id number] Flagyl 500 MG Inj 100 ML @ 100 0 / 0 200 / 200 100 / 100 mls/hr IV.SIG Q8H NIKKI Rx#: [id number] Oral 960 / 960 240 / 240 Output: Urine 800 / 800 850 / 850 Other: Date of Last Bowel Movement 03/17/18 Results - Labs CBC & Chem 7: 03/18/18 04:54 03/17/18 12:31 Laboratory Results - last 24 hr 03/18/18 03/18/18 03/19/18 17:19 20:58 06:21 POC Glucose 105 117 H Urine Color Yellow Urine Clarity Clear Urine pH 5.0 Ur Specific [place] 1.012 Urine Protein Negative Urine Glucose (UA) Negative Urine Ketones Trace H Urine Occult Blood Negative Urine Nitrate Negative Urine Bilirubin Negative Urine Urobilinogen Less than 2 Ur Leukocyte Esterase Trace H Urine RBC Less than 1 Urine WBC 1 Urine Mucus Few H Micro UA Comment Culture not ind Ur Microscopic Review Not Reportable Urine Culture Comments Culture not ind 03/19/18 03/19/18 08:13 12:17 POC Glucose 106 118 H Urine Color Urine Clarity Urine pH Ur Specific [place] Urine Protein Urine Glucose (UA) Urine Ketones Urine Occult Blood Urine Nitrate Urine Bilirubin Urine Urobilinogen Ur Leukocyte Esterase Urine RBC Urine WBC Urine Mucus Micro UA Comment Ur Microscopic Review Urine Culture Comments Microbiology 03/18/18 11:27 Blood - Peripheral Aerobic Blood Culture - Preliminary No growth in 1 day 03/18/18 11:27 Blood - Peripheral Anaerobic Blood Culture - Preliminary No growth in 1 day 03/18/18 11:32 Blood - Peripheral Aerobic Blood Culture - Preliminary No growth in 1 day 03/18/18 11:32 Blood - Peripheral Anaerobic Blood Culture - Preliminary No growth in 1 day - Imaging Impressions Chest X-Ray 03/19/18 04:31 CONCLUSION: Worsening opacities in the right lung Assessment and Plan - Plan This patient is a 77-year-old male with a diagnosis of lung cancer. He also has coronary artery disease, hypertension, dyslipidemia, diabetes mellitus type 2. The patient presented to our emergency room with complaints of abdominal pain that has been ongoing for approximately 3 months. In the emergency department a CT scan of the abdomen and pelvis showed findings consistent with colitis. CT scan also shows substantial constipation Sepsis possibly secondary to acute colitis -Sepsis element improving, blood cultures have been negative Continue Levaquin and metronidazole for the possibility of colitis Abdominal pain Possibly secondary to colitis and/or substantial constipation which is evident upon CT scan upon my independent review We will start Relistor and administer an enema GI following, considering inpatient EGD/colonoscopy Coronary artery disease/hypertension -Continue Coreg, Lipitor, Zetia Lung cancer -patient is under the care of Dr. Lynch and is on radiation/chemo Diabetes mellitus type 2 -Continue low-dose insulin sliding scale. Continue Accu-Cheks. Dyslipidemia -Continue statin Lovenox for DVT prophylaxis
[2018-03-19] MEDS ORDERED: Methylnaltrexone Inj 12 MG/0.6 ML Vial SQ ONE (14:45)
[2018-03-19] MEDS: Pantoprazole Inj 40 MG Vial IV.PUSH SCH (19:45)
[2018-03-20] MEDS: Insulin NovoLOG Aspart Correctional Sugar Inj SQ SCH ×4 (08:23→21:59)
[2018-03-20] MEDS: Ezetimibe 10 MG Tablet PO SCH (12:22)
[2018-03-20] MEDS: guaiFENesin 600 MG ER Tablet PO SCH ×2 (12:22→21:59)
[2018-03-20] MEDS: Enoxaparin Inj 40 MG/0.4 ML Syringe SQ SCH (12:23)
[2018-03-20] MEDS: Carvedilol 6.25 MG Tablet PO SCH ×2 (12:23→21:59)
--- NOTE | 2018-03-20 14:04 | P.PNGI ---
Subjective Interval history: Pt resting in bed, still having some lower abdominal pains, states fairly constant. Had a small BM. denies nausea or vomiting. Still doing clear liquid diet. <Cassie David - Last Filed: 03/20/18 14:01> Physical Exam Vital signs: Vital Signs 03/19/18 16:00 03/19/18 16:50 03/19/18 19:00 Temperature 98.9 F Pulse Rate 108 H 109 H 110 H Respiratory Rate 18 Blood Pressure 130/80 Pulse Oximetry 97 03/19/18 20:00 03/19/18 23:00 03/20/18 00:00 Temperature 98.3 F 98.6 F Pulse Rate 95 H 109 H 110 H Respiratory Rate 14 16 Blood Pressure 125/68 122/80 Pulse Oximetry 96 03/20/18 03:33 03/20/18 04:00 03/20/18 12:18 Temperature 98.3 F Pulse Rate 99 H 111 H Respiratory Rate 12 Blood Pressure 127/56 L Pulse Oximetry 97 94 L Intake & Output 03/19/18 03/20/18 03/20/18 18:59 06:59 18:59 Intake Total 1470 / 1470 200 / 200 250 / 250 Output Total 740 / 740 300 / 300 Balance 730 / 730 -100 / -100 250 / 250 Weight 76 kg Intake: IV 450 / 450 200 / 200 250 / 250 Cipro 400 MG/200 ML Inj 400 mg 200 / 200 In 200 ml @ 200 mls/hr IV.SIG Q12H NIKKI Rx#:[id number] Levaquin 750 mg Premix Inj 150 150 / 150 150 / 150 ML @ 100 mls/hr IV.SIG Q24H NIKKI Rx#:[id number] Flagyl 500 MG Inj 100 ML @ 100 100 / 100 200 / 200 100 / 100 mls/hr IV.SIG Q8H NIKKI Rx#: [id number] Oral 1020 / 1020 Output: Urine 740 / 740 300 / 300 Other: # Voids 1 Date of Last Bowel Movement 03/17/18 - Constitutional no acute distress - Routine HEENT Exam Head: Present: normocephalic, atraumatic - Routine Respiratory Exam Absent: accessory muscle use - Routine Abdominal Exam Present: soft, normoactive bowel sounds, tenderness (lower abdominal tenderness ). Absent: distended - Routine Skin Exam Present: dry, warm - Routine Neurological Exam Present: alert, oriented X3 <Cassie David - Last Filed: 03/20/18 14:01> Vital signs: Vital Signs 03/19/18 16:50 03/19/18 19:00 03/19/18 20:00 Temperature 98.9 F 98.3 F Pulse Rate 109 H 110 H 95 H Respiratory Rate 18 14 Blood Pressure 130/80 125/68 Pulse Oximetry 97 03/19/18 23:00 03/20/18 00:00 03/20/18 03:33 Temperature 98.6 F Pulse Rate 109 H 110 H 99 H Respiratory Rate 16 Blood Pressure 122/80 Pulse Oximetry 96 03/20/18 04:00 03/20/18 08:00 03/20/18 12:18 Temperature 98.3 F Pulse Rate 111 H Respiratory Rate 12 Blood Pressure 127/56 L Pulse Oximetry 97 93 L 94 L Intake & Output 03/19/18 03/20/18 03/20/18 18:59 06:59 18:59 Intake Total 1470 / 1470 200 / 200 250 / 250 Output Total 740 / 740 300 / 300 Balance 730 / 730 -100 / -100 250 / 250 Weight 76 kg Intake: IV 450 / 450 200 / 200 250 / 250 Cipro 400 MG/200 ML Inj 400 mg 200 / 200 In 200 ml @ 200 mls/hr IV.SIG Q12H NIKKI Rx#:[id number] Levaquin 750 mg Premix Inj 150 150 / 150 150 / 150 ML @ 100 mls/hr IV.SIG Q24H NIKKI Rx#:[id number] Flagyl 500 MG Inj 100 ML @ 100 100 / 100 200 / 200 100 / 100 mls/hr IV.SIG Q8H NIKKI Rx#: [id number] Oral 1020 / 1020 Output: Urine 740 / 740 300 / 300 Other: # Voids 1 Date of Last Bowel Movement 03/17/18 03/20/18 <Leia Briceno - Last Filed: 03/20/18 16:25> Results - Labs CBC & Chem 7: 03/18/18 04:54 03/17/18 12:31 Laboratory Results - last 24 hr 03/19/18 03/19/18 16:50 21:23 POC Glucose 119 H 117 H Microbiology 03/18/18 11:27 Blood - Peripheral Aerobic Blood Culture - Preliminary No growth in 2 days 03/18/18 11:27 Blood - Peripheral Anaerobic Blood Culture - Preliminary No growth in 2 days 03/18/18 11:32 Blood - Peripheral Aerobic Blood Culture - Preliminary No growth in 2 days 03/18/18 11:32 Blood - Peripheral Anaerobic Blood Culture - Preliminary No growth in 2 days <Cassie David - Last Filed: 03/20/18 14:01> - Labs CBC & Chem 7: 03/18/18 04:54 03/17/18 12:31 Laboratory Results - last 24 hr 03/19/18 03/19/18 16:50 21:23 POC Glucose 119 H 117 H Microbiology 03/18/18 11:27 Blood - Peripheral Aerobic Blood Culture - Preliminary No growth in 2 days 03/18/18 11:27 Blood - Peripheral Anaerobic Blood Culture - Preliminary No growth in 2 days 03/18/18 11:32 Blood - Peripheral Aerobic Blood Culture - Preliminary No growth in 2 days 03/18/18 11:32 Blood - Peripheral Anaerobic Blood Culture - Preliminary No growth in 2 days <Leia Briceno - Last Filed: 03/20/18 16:25> Assessment and Plan (1) Colitis Status: Inactive Code(s): K52.9 - Noninfective gastroenteritis and colitis, unspecified - Plan Assessment: - Colitis-- infectious vs inflammatory Presented with mid, lower abdominal pain, states intermittent for the past 3 months but became progressively unbearable after radiation on Friday. Denies any associated nausea, vomiting, changes in bowel habits. States last BM was on Friday. Denies any hematochezia or melena. CT abd/pelvis W IV contrast (03/17) Abnormal loops of distal small bowel in the right midabdomen with wall thickening and surrounding inflammatory change. This is nonspecific and could be infectious or inflammatory. This area was unremarkable on the recent PET/CT dated 01/27/2018. Colonoscopy (Jan 2014) by Dr. hughes --> Mild diverticulosis in the sigmoid colon. Colon mucosa was otherwise normal. Internal hemorrhoids. Recommended for repeat exam in 10 years. Has never had EGD - Recent diagnosis of lung cancer- began radiation therapy on Friday, today will be his third treatment. Planned to start chemotherapy on . - History of ETOH abuse- States he was drinking at least a six pack of beer a day until a month ago when he was told he need to quit because of the interaction it was going to have with chemotherapy. (03/20) Pt still having lower abdominal pain. Taking clear liquid diet. Denies nausea, vomiting. Agreeable to EGD/colonoscopy on Friday if symptoms persist. Plan -Clear liquid diet -Continue IV antibiotics Levaquin/Flagyl -Pain medication and antiemetics as per attending -Continue PPI -Plan for EGD/colonoscopy Friday if symptoms persist and pt remains stable -Supportive care -Further recommendations to follow Pt has been seen and examined by myself and Dr. Briceno and this note is written on her behalf <Cassie David - Last Filed: 03/20/18 14:01> (1) Colitis Status: Inactive Code(s): K52.9 - Noninfective gastroenteritis and colitis, unspecified - Attending Attestation seen, examined agree with above we will order cta to r/o mesenteric ischemia <Leia Briceno - Last Filed: 03/20/18 16:25>
[2018-03-20] MEDS ORDERED: Hold Metfromin until further notice OTHER SCH (16:25)
--- NOTE | 2018-03-20 16:36 | P.PN ---
Subjective Interval history: Nursing denies any acute changes overnight. Patient says he still hurting. When I saw him this morning says he had not had a bowel movement. Physical Exam Vital signs: Vital Signs 03/19/18 16:50 03/19/18 19:00 03/19/18 20:00 Temperature 98.9 F 98.3 F Pulse Rate 109 H 110 H 95 H Respiratory Rate 18 14 Blood Pressure 130/80 125/68 Pulse Oximetry 97 03/19/18 23:00 03/20/18 00:00 03/20/18 03:33 Temperature 98.6 F Pulse Rate 109 H 110 H 99 H Respiratory Rate 16 Blood Pressure 122/80 Pulse Oximetry 96 03/20/18 04:00 03/20/18 08:00 03/20/18 12:18 Temperature 98.3 F Pulse Rate 111 H Respiratory Rate 12 Blood Pressure 127/56 L Pulse Oximetry 97 93 L 94 L Intake & Output 03/19/18 03/20/18 03/20/18 18:59 06:59 18:59 Intake Total 1470 / 1470 200 / 200 250 / 250 Output Total 740 / 740 300 / 300 Balance 730 / 730 -100 / -100 250 / 250 Weight 76 kg Intake: IV 450 / 450 200 / 200 250 / 250 Cipro 400 MG/200 ML Inj 400 mg 200 / 200 In 200 ml @ 200 mls/hr IV.SIG Q12H NIKKI Rx#:[id number] Levaquin 750 mg Premix Inj 150 150 / 150 150 / 150 ML @ 100 mls/hr IV.SIG Q24H NIKKI Rx#:[id number] Flagyl 500 MG Inj 100 ML @ 100 100 / 100 200 / 200 100 / 100 mls/hr IV.SIG Q8H NIKKI Rx#: [id number] Oral 1020 / 1020 Output: Urine 740 / 740 300 / 300 Other: # Voids 1 Date of Last Bowel Movement 03/17/18 03/20/18 Narrative: Abdomen soft, mildly distended, still having at least mild diffuse tenderness to palpation Lying in bed, awake and alert, no acute distress Unlabored breathing Results - Labs CBC & Chem 7: 03/18/18 04:54 03/17/18 12:31 Laboratory Results - last 24 hr 03/19/18 03/19/18 16:50 21:23 POC Glucose 119 H 117 H Microbiology 03/18/18 11:27 Blood - Peripheral Aerobic Blood Culture - Preliminary No growth in 2 days 03/18/18 11:27 Blood - Peripheral Anaerobic Blood Culture - Preliminary No growth in 2 days 03/18/18 11:32 Blood - Peripheral Aerobic Blood Culture - Preliminary No growth in 2 days 03/18/18 11:32 Blood - Peripheral Anaerobic Blood Culture - Preliminary No growth in 2 days Assessment and Plan - Plan This patient is a 77-year-old male with a diagnosis of lung cancer. He also has coronary artery disease, hypertension, dyslipidemia, diabetes mellitus type 2. The patient presented to our emergency room with complaints of abdominal pain that has been ongoing for approximately 3 months. In the emergency department a CT scan of the abdomen and pelvis showed findings consistent with colitis. CT scan also shows substantial constipation Sepsis possibly secondary to acute colitis -Sepsis element improving, blood cultures have been negative Continue Levaquin and metronidazole for the possibility of colitis Abdominal pain Possibly secondary to colitis and/or substantial constipation which is evident upon CT scan upon my independent review -Given relistor or yesterday,, will proceed with Gastrografin enema GI following, considering inpatient EGD/colonoscopy if symptoms haven't improved by friday Coronary artery disease/hypertension -Continue Coreg, Lipitor, Zetia Lung cancer -patient is under the care of Dr. Lynch and is on radiation/chemo Diabetes mellitus type 2 -Continue low-dose insulin sliding scale. Continue Accu-Cheks. Dyslipidemia -Continue statin Lovenox for DVT prophylaxis
--- NOTE | 2018-03-20 17:31 | XR ---
EXAM DATE: 03/20/2018 5:28 PM EST AGE/SEX: 77 years / Male INDICATIONS: Constipation. CLINICAL DATA: This is the patient's initial encounter. Patient reports that signs and symptoms have been present for 3 days and indicates a pain score of 0/10. MEDICAL/SURGICAL HISTORY: . Carcinoma, lung. None. COMPARISON: No prior exams available for comparison. FINDINGS: Nonspecific gas pattern is noted. There is air throughout the gastrointestinal tract. There is no si gnificant stool retention. Small amount stool is present in the colon. CONCLUSION: No significant stool retention. Electronically signed by: Souleymane Billy MD 03/20/2018 5:29 PM EST
[2018-03-20] MEDS: Pantoprazole Inj 40 MG Vial IV.PUSH SCH (17:41)
[2018-03-21] MEDS: Carvedilol 6.25 MG Tablet PO SCH ×2 (08:13→20:27)
[2018-03-21] MEDS: Ezetimibe 10 MG Tablet PO SCH (08:14)
[2018-03-21] MEDS: Enoxaparin Inj 40 MG/0.4 ML Syringe SQ SCH (08:14)
[2018-03-21] MEDS: guaiFENesin 600 MG ER Tablet PO SCH ×2 (08:14→20:27)
[2018-03-21] MEDS: Insulin NovoLOG Aspart Correctional Sugar Inj SQ SCH ×4 (08:19→20:28)
--- NOTE | 2018-03-21 09:11 | P.PN ---
Subjective Interval history: This a pleasant 77 y/o male with Lung cancer, CAD, Hypertension, Hyperlipidemia , DM II, came to ER with Abdominal pain, room with complaints of abdominal pain, CT scan of the abdomen and pelvis showed findings consistent with colitis. on Levaquin and Metronidazole. 03/21: stable in his bedroom, no complaint, discussed with nurse , as per GI specialist continue clear liquid diet IV antibiotics, Levaquin and Flagyl, PPIs, EGD and Colonoscopy on 03/23/18, CTA abdomen asked by GI. Physical Exam Vital signs: Vital Signs 03/20/18 12:18 03/20/18 17:15 03/20/18 19:58 Temperature 98.7 F Pulse Rate 106 H 135 H Respiratory Rate 16 Blood Pressure 136/63 Pulse Oximetry 94 L 94 L 03/20/18 20:20 03/21/18 00:10 03/21/18 00:30 Temperature 98.1 F 98.7 F Pulse Rate 108 H 119 H 107 H Respiratory Rate 18 18 Blood Pressure 112/69 100/61 Pulse Oximetry 93 L 94 L 03/21/18 03:54 03/21/18 04:25 03/21/18 08:00 Temperature 98.2 F 98.3 F Pulse Rate 105 H 106 H 109 H Respiratory Rate 19 16 Blood Pressure 112/76 103/71 Pulse Oximetry 94 L 95 Intake & Output 03/20/18 03/21/18 03/21/18 18:59 06:59 18:59 Intake Total 550 / 550 780 / 780 100 / 100 Output Total 250 / 250 350 / 350 Balance 300 / 300 430 / 430 100 / 100 Weight 76 kg 76 kg Intake: IV 250 / 250 200 / 200 100 / 100 Levaquin 750 mg Premix Inj 150 150 / 150 ML @ 100 mls/hr IV.SIG Q24H NIKKI Rx#:[id number] Flagyl 500 MG Inj 100 ML @ 100 100 / 100 200 / 200 100 / 100 mls/hr IV.SIG Q8H NIKKI Rx#: [id number] Oral 300 / 300 580 / 580 Output: Urine 250 / 250 350 / 350 Other: Date of Last Bowel Movement 03/20/18 03/20/18 03/20/18 # Bowel Movements 0 Weight On Admission 76 kg Narrative: GENERAL: This is a well-nourished, well-developed patient, in no apparent distress. CARDIOVASCULAR: Regular rate and rhythm without murmurs, gallops, or rubs. RESPIRATORY: Clear to auscultation. Breath sounds equal bilaterally. No wheezes , rales, or rhonchi. GASTROINTESTINAL: Abdomen soft, Mild tenderness generalized. MUSCULOSKELETAL: Extremities without clubbing, cyanosis, or edema. NEURO: Alert & Oriented x4 to person, place, time, situation. Moves all ext x4 Results - Labs CBC & Chem 7: 03/21/18 09:45 03/21/18 11:50 Laboratory Results - last 24 hr 03/20/18 03/20/18 03/21/18 17:46 21:54 08:19 POC Glucose 115 H 137 H 124 H Microbiology 03/18/18 11:27 Blood - Peripheral Aerobic Blood Culture - Preliminary No growth in 2 days 03/18/18 11:27 Blood - Peripheral Anaerobic Blood Culture - Preliminary No growth in 2 days 03/18/18 11:32 Blood - Peripheral Aerobic Blood Culture - Preliminary No growth in 2 days 03/18/18 11:32 Blood - Peripheral Anaerobic Blood Culture - Preliminary No growth in 2 days - Imaging Impressions Abdomen X-Ray 03/20/18 00:00 CONCLUSION: No significant stool retention. - Procedures none Assessment and Plan - Plan This patient is a 77-year-old male with a diagnosis of lung cancer. He also has coronary artery disease, hypertension, dyslipidemia, diabetes mellitus type 2. The patient presented to our emergency room with complaints of abdominal pain that has been ongoing for approximately 3 months. In the emergency department a CT scan of the abdomen and pelvis showed findings consistent with colitis. CT scan also shows substantial constipation Sepsis possibly secondary to acute colitis -Sepsis element improving, blood cultures have been negative Continue Levaquin and metronidazole for the possibility of colitis, WBC improved today 5.1 from 11.9 Magnesium 1.7 giving replacement. Abdominal pain Possibly secondary to colitis and/or substantial constipation which is evident upon CT scan upon my independent review -Given relistor or yesterday,, will proceed with Gastrografin enema GI following, considering inpatient EGD/colonoscopy if symptoms haven't improved by Friday, CTA abdomen to be performed today. Coronary artery disease/hypertension -Continue Coreg, Lipitor, Zetia Lung cancer -patient is under the care of Dr. Lynch and is on radiation/chemo Diabetes mellitus type 2 -Continue low-dose insulin sliding scale. Continue Accu-Cheks. Dyslipidemia -Continue statin Lovenox for DVT prophylaxis Code Status: Full code. Discussed Condition With: Patient and nurse and MDR. Discharge Planning: Once cleared by GI specialists.
[2018-03-21 10:37] LABS: Eos # (Auto) 0.1 th/mm3 (0.0-0.4); Eos % (Auto) 1.4 % (0.0-4.0); Hematocrit 32.2 % (39.0-51.0); Hemoglobin 10.4 gm/dL (13.0-17.0); Lymph # (Auto) 0.5 th/mm3 (1.0-4.8); Lymph % (Auto) 9.6 % (9.0-44.0); Mean Corpuscular HGB Conc 32.3 % (32.0-36.0); Mean Corpuscular Hemoglobin 27.8 pg (27.0-34.0); Mean Corpuscular Volume 86.1 fL (80.0-100.0); Mean Platelet Volume 7.7 fL (7.0-11.0); Mono # (Auto) 0.6 th/mm3 (0.0-0.9); Mono % (Auto) 11.2 % (0.0-8.0); Neut # (Auto) 3.9 th/mm3 (1.8-7.7); Neut % (Auto) 76.8 % (16.0-70.0); Platelet Count 331 th/mm3 (150-450); Red Blood Count 3.74 mil/mm3 (4.50-5.90); Red Cell Distribution Width 15.9 % (11.6-17.2); White Blood Count 5.1 th/mm3 (4.0-11.0)
[2018-03-21 13:01] LABS: Calcium 8.7 mg/dL (8.5-10.1); Carbon Dioxide 27.9 meq/L (21.0-32.0); Magnesium 1.7 mg/dL (1.5-2.5); Phosphorus 2.1 mg/dL (2.5-4.9); Potassium 4.1 meq/L (3.5-5.1)
[2018-03-21] MEDS: Magnesium Oxide 400 MG Tablet PO SCH ×2 (13:11→20:27)
[2018-03-21] MEDS: Pantoprazole Inj 40 MG Vial IV.PUSH SCH (17:30)
[2018-03-21] MEDS ORDERED: Metoprolol Tartrate 25 MG Tablet PO SCH (18:45)
--- NOTE | 2018-03-21 20:02 | CT ---
EXAM DATE: 03/21/2018 7:41 PM EST AGE/SEX: 77 years / Male INDICATIONS: Abdominal pain; abnormal CT abdomen. CLINICAL DATA: This is the patient's subsequent encounter. Patient reports that signs and symptoms h ave been present for 2 days and indicates a pain score of 7/10. MEDICAL/SURGICAL HISTORY: Carcinoma, lung. Cardiovascular disease. Diabetes. GERD, Coronary sten t . Right knee surgery RADIATION DOSE: 6.95 CTDI (mGy) COMPARISON: [facility] [place], CT ABDOMEN & PELVIS W CONTRAST, 03/17/2018. . TECHNIQUE: Volumetric scanning was performed using a multi-row detector CT scanner during bolus infu mary of 99 ml Omnipaque 350 (iohexol) nonionic water-soluble contrast as a single exam dose. . The data was post processed with a variety of visualization algorithms including full volume maximum inte nsity projection, multi-planar sliding thin slab reformation, curved planar reformation, and surface rendering techniques. Using automated exposure control and adjustment of the mA and/or kV according to patient size, radiation dose was kept as low as reasonably achievable to obtain optimal diagnostic quality images. DICOM format image data is available electronically for review and comparison. FINDINGS: There is an atherosclerotic abdominal aorta. The vessel is mildly aneurysmal distally, 2.7 cm maximal involving the 3 cm or so just above the bifurcation. No dissection. Very mild atherosclerosis involves the origins and proximal portions of the celiac and superior mesen teric arteries. Similar findings are seen of the proximal and mid portions of the renal arteries. Ath erosclerosis of the abdominal aorta involves the origin of the inferior mesenteric artery. No branch vessel thrombosis or significant stenosis demonstrated. There are clearly patent branches of the supe rior mesenteric artery extending into the right lower quadrant. Persistent inflammatory changes in the mesentery of the right lower quadrant again demonstrated and i nvolves multiple loops of ileum, including the terminal ileum. The cecum is also focally indurated. T here is a questionable 3.5 cm fluid collection developing inferiorly within the inflammatory changes, for example series 601 image 58. No bowel obstruction demonstrated. CONCLUSION: 1. Atherosclerosis of the abdominal aorta and branch vessels as described. No significant stenosis. No thrombosis or other acute vascular abnormality demonstrated. 2. Persistent inflammatory changes in the mesentery of the right lower moderate and, although only p artly visualized on the study, questionable abscess developing. The etiology of these inflammatory ch anges are uncertain but thought to be a severe, focal ileitis. Appendicitis or inflamed Meckel's dive rticulum would also be in the differential. Electronically signed by: Armand Perez MD 03/21/2018 8:01 PM EST
[2018-03-22] MEDS: Enoxaparin Inj 40 MG/0.4 ML Syringe SQ SCH (08:21)
[2018-03-22] MEDS: Carvedilol 6.25 MG Tablet PO SCH (08:23)
[2018-03-22] MEDS: Ezetimibe 10 MG Tablet PO SCH (08:23)
[2018-03-22] MEDS: guaiFENesin 600 MG ER Tablet PO SCH ×2 (08:23→20:33)
[2018-03-22] MEDS: Insulin NovoLOG Aspart Correctional Sugar Inj SQ SCH ×4 (08:25→20:25)
[2018-03-22] MEDS: Magnesium Oxide 400 MG Tablet PO SCH ×2 (09:00→20:33)
[2018-03-22] MEDS ORDERED: dilTIAZem CD 300 MG Capsule PO SCH (10:00)
--- NOTE | 2018-03-22 10:07 | P.PNIM ---
Subjective Interval history: Patient seen and examined this morning. Afebrile, patient continues to have tachycardia have been giving his carvedilol. His diltiazem was held and is now been restarted. We will be placing a consult to cardiology for evaluation and possible medication EKG also to be ordered. Patient is unaware of having atrial fibrillation but on upon further discussion he recalls being told he has a irregular heartbeat. And that my description of atrial fibrillation is familiar to him, consult to cardiology placed. Otherwise patient reports she is doing well and states that he did have one bowel movement and he understands of the plan of care at this time is for colonoscopy to be done tomorrow 03/23 Physical Exam Vital signs: Vital Signs 03/21/18 12:00 03/21/18 16:00 03/21/18 20:00 Temperature 98.4 F 98.4 F 98.2 F Pulse Rate 87 109 H 98 H Respiratory Rate 18 18 18 Blood Pressure 108/71 130/72 135/71 Pulse Oximetry 95 94 L 95 03/21/18 21:00 03/22/18 00:00 03/22/18 00:31 Temperature 98.1 F Pulse Rate 106 H 98 H 104 H Respiratory Rate 17 Blood Pressure 109/59 L Pulse Oximetry 94 L 03/22/18 02:18 03/22/18 04:00 03/22/18 08:00 Temperature 97.9 F 98.2 F Pulse Rate 100 H 108 H Respiratory Rate 17 18 18 Blood Pressure 129/66 129/73 Pulse Oximetry 95 93 L Intake & Output 03/21/18 03/22/18 03/22/18 18:59 06:59 18:59 Intake Total 1030 / 1030 200 / 200 100 / 100 Balance 1030 / 1030 200 / 200 100 / 100 Weight 76.1 kg Intake: IV 250 / 250 200 / 200 100 / 100 Levaquin 750 mg Premix Inj 150 150 / 150 ML @ 100 mls/hr IV.SIG Q24H NIKKI Rx#:[id number] Flagyl 500 MG Inj 100 ML @ 100 100 / 100 200 / 200 100 / 100 mls/hr IV.SIG Q8H NIKKI Rx#: [id number] Oral 780 / 780 Other: # Voids 4 5 Date of Last Bowel Movement 03/20/18 03/20/18 03/20/18 Narrative: GENERAL: This is a well-nourished, well-developed patient, in no apparent distress. CARDIOVASCULAR: Regular rate and rhythm without murmurs, gallops, or rubs. RESPIRATORY: Clear to auscultation. Breath sounds equal bilaterally. No wheezes , rales, or rhonchi. GASTROINTESTINAL: Abdomen soft, Mild tenderness generalized. MUSCULOSKELETAL: Extremities without clubbing, cyanosis, or edema. NEURO: Alert & Oriented x4 to person, place, time, situation. Moves all ext x4 Results - Labs CBC & Chem 7: 03/21/18 09:45 03/21/18 11:50 Laboratory Results - last 24 hr 03/21/18 03/21/18 03/21/18 09:45 11:15 11:50 WBC 5.1 RBC 3.74 L Hgb 10.4 L Hct 32.2 L MCV 86.1 MCH 27.8 MCHC 32.3 RDW 15.9 Plt Count 331 MPV 7.7 Neut % (Auto) 76.8 H Lymph % (Auto) 9.6 Newberry % (Auto) 11.2 H Eos % (Auto) 1.4 Baso % (Auto) 1.0 Neut # (Auto) 3.9 Lymph # (Auto) 0.5 L Newberry # (Auto) 0.6 Eos # (Auto) 0.1 Baso # (Auto) 0.0 WBC Differential . Differential Comment Auto diff final Sodium 134 L Potassium 4.1 Chloride 97 L Carbon Dioxide 27.9 Anion Gap 9 BUN 7 Creatinine 0.86 Estimated GFR 86 L POC Glucose 150 H Random Glucose 112 H Calcium 8.7 Phosphorus 2.1 L Magnesium 1.7 03/21/18 03/21/18 03/22/18 17:06 20:00 06:41 WBC RBC Hgb Hct MCV MCH MCHC RDW Plt Count MPV Neut % (Auto) Lymph % (Auto) Newberry % (Auto) Eos % (Auto) Baso % (Auto) Neut # (Auto) Lymph # (Auto) Newberry # (Auto) Eos # (Auto) Baso # (Auto) WBC Differential Differential Comment Sodium Potassium Chloride Carbon Dioxide Anion Gap BUN Creatinine Estimated GFR POC Glucose 107 159 H 123 H Random Glucose Calcium Phosphorus Magnesium Microbiology 03/18/18 11:27 Blood - Peripheral Aerobic Blood Culture - Preliminary No growth in 3 days 03/18/18 11:27 Blood - Peripheral Anaerobic Blood Culture - Preliminary No growth in 3 days 03/18/18 11:32 Blood - Peripheral Aerobic Blood Culture - Preliminary No growth in 3 days 03/18/18 11:32 Blood - Peripheral Anaerobic Blood Culture - Preliminary No growth in 3 days - Imaging Impressions Abdomen/Pelvis CTA 03/21/18 00:00 CONCLUSION: 1. Atherosclerosis of the abdominal aorta and branch vessels as described. No significant stenosis. No thrombosis or other acute vascular abnormality demonstrated. 2. Persistent inflammatory changes in the mesentery of the right lower moderate and, although only partly visualized on the study, questionable abscess developing. The etiology of these inflammatory changes are uncertain but thought to be a severe, focal ileitis. Appendicitis or inflamed Meckel's diverticulum would also be in the differential. - Procedures none Assessment and Plan - Assessment (1) Colitis Code(s): K52.9 - Noninfective gastroenteritis and colitis, unspecified Status : Acute - Plan This patient is a 77-year-old male with a diagnosis of lung cancer. He also has coronary artery disease, hypertension, dyslipidemia, diabetes mellitus type 2. The patient presented to our emergency room with complaints of abdominal pain that has been ongoing for approximately 3 months. In the emergency department a CT scan of the abdomen and pelvis showed findings consistent with colitis. CT scan also shows substantial constipation Sepsis possibly secondary to acute colitis -Sepsis element improving, blood cultures have been negative Continue Levaquin and metronidazole for the possibility of colitis, Abdominal pain Possibly secondary to colitis and/or substantial constipation which is evident upon CT scan upon my independent review -CTA: questionable abscess, signs of ileitis. GI following, considering inpatient EGD/colonoscopy if symptoms haven't improved by Friday Coronary artery disease/hypertension -Continue Coreg, Lipitor, Zetia Lung cancer -patient is under the care of Dr. Lynch and is on radiation/chemo Diabetes mellitus type 2 -Continue low-dose insulin sliding scale. Continue Accu-Cheks. Dyslipidemia -Continue statin Lovenox for DVT prophylaxis Code Status: Full code Discussed Condition With: Discussed with forest pathologist Planning: Pending further workup and clearance by gastroenterology
--- NOTE | 2018-03-22 12:15 | ECG ---
Date Performed: 03/22/2018 Time Performed: 10:57:04 PTAGE: 77 years EKG: SINUS TACHYCARDIA WITH OCCASIONAL SUPRAVENTRICULAR PREMATURE COMPLEXES RSR prime in V1 and V2 ABNORMAL RHYTHM ECG No significant change from prior electrocardiogram. PREVIOUS TRACING : 03/18/2018 01.02 DOCTOR: Rick Davies Interpretating Date/Time 03/22/2018 12:13:37
--- NOTE | 2018-03-22 12:55 | MB ---
cc: Fab Burt MD DATE: 03/22/2018 REASON FOR CONSULTATION: Atrial fibrillation. HISTORY OF PRESENT ILLNESS: The patient is a 77-year-old white male, followed in our office by Dr. Michael Suarez, with a history of coronary artery disease, diabetes, hyperlipidemia, lung cancer, who was admitted with abdominal pain. Further workup has suggested colitis. Since coming into the hospital he states his abdominal pain has substantially improved. He denies nausea, vomiting, lightheadedness, syncope, near syncope, angina, shortness of breath, pedal edema, paroxysmal nocturnal dyspnea. Very rarely he experiences fleeting, fluttering palpitations. PAST MEDICAL HISTORY: 1. Diabetes. 2. Hyperlipidemia. 3. Coronary artery disease, status post myocardial infarction 1983, status post myocardial infarction 2000, at which time, he apparently underwent placement of 2 or 3 right coronary artery stents. In 03/2003, he underwent further stenting of the mid to distal right coronary by Dr. Michael Suarez. 4. Right upper lobe lung cancer, currently getting chemotherapy and radiation therapy. 5. Very poorly documented history of atrial fibrillation, which was noted on a consult note by Dr. Champ White 09/18/2015, although at that time, no EKGs or rhythm strip showed atrial fibrillation. CARDIAC MEDICATIONS AT HOME: 1. Crestor 40 mg daily. 2. Zetia 10 mg daily. 3. Carvedilol 6.25 mg b.i.d. 4. Cardizem CD 300 mg daily. 5. Aspirin 81 mg b.i.d. ALLERGIES: OXYCODONE. FAMILY HISTORY: Noncontributory. SOCIAL HISTORY: The patient quit smoking many years ago. He denies alcohol abuse. REVIEW OF SYSTEMS: As in the history of present illness, otherwise negative or noncontributory. He also denies headache, visual changes, melena, bright red blood per rectum, fevers. PHYSICAL EXAMINATION: VITAL SIGNS: His blood pressure 129/73 with a pulse of 108, respirations 18. GENERAL: He is a well-developed, well-nourished white male, in no acute distress. NECK: Jugular venous pressure is normal. Carotid pulses are 2+ bilaterally and without bruits. CHEST: Reveals clear lung borges. HEART: He has a regular rhythm and rate without S3, S4, or murmur. ABDOMEN: He has a soft, nontender abdomen. Bowel sounds are present. There is no definite hepatosplenomegaly. EXTREMITIES: Reveals no clubbing, cyanosis or edema. LABORATORY DATA: EKG from today at 10:57 a.m. shows sinus tachycardia with occasional premature atrial complex otherwise normal EKG, no change from EKG 03/18/2018. Chest x-ray shows worsening opacities in the right lung. LABORATORY DATA: Includes WBC 5.1, hemoglobin 10.4, platelets 331, potassium 4.1, BUN 7, creatinine 0.86. IMPRESSION: A 77-year-old white male with a history of diabetes, coronary artery disease, lung cancer, now admitted with abdominal pain. I have been asked to see the patient for uncontrolled atrial fibrillation. His numerous rhythm strips, as well as his EKGs have been reviewed. I do not see any definitive evidence for atrial fibrillation. He has a number of salvos of what appear to be atrial tachycardia, which is an overall benign rhythm. The patient is minimally symptomatic with very rare fleeting palpitations. There is no evidence for acute coronary syndrome. There is no definite evidence for congestive heart failure. RECOMMENDATIONS: 1. Increase dosing of his calcium channel and beta blockers. 2. Would resume his usual daily aspirin. 3. We will have Dr. Michael Suarez follow up as needed. MD [id number] Joe/lane , 12:15 PM , 12:24 PM
[2018-03-22] MEDS ORDERED: Magnesium Citrate Liq 300 ML Bottle PO ONE ×2 (15:55→17:00)
--- NOTE | 2018-03-22 16:23 | P.PNGI ---
Subjective Interval history: Patient's resting in the bed states good bowel movement today x2 1 formed 1 softer No abdominal pain no nausea no vomiting, Discussed EGD and colonoscopy with patient and plan including prep. Physical Exam Vital signs: Vital Signs 03/21/18 20:00 03/21/18 21:00 03/22/18 00:00 Temperature 98.2 F 98.1 F Pulse Rate 98 H 106 H 98 H Respiratory Rate 18 17 Blood Pressure 135/71 109/59 L Pulse Oximetry 95 94 L 03/22/18 00:31 03/22/18 02:18 03/22/18 04:00 Temperature 97.9 F Pulse Rate 104 H 100 H Respiratory Rate 17 18 Blood Pressure 129/66 Pulse Oximetry 95 03/22/18 08:00 03/22/18 12:00 03/22/18 16:00 Temperature 98.2 F 98.1 F 98.4 F Pulse Rate 108 H 104 H 103 H Respiratory Rate 18 18 20 Blood Pressure 129/73 96/51 L 105/56 L Pulse Oximetry 93 L 92 L 91 L Intake & Output 03/21/18 03/22/18 03/22/18 18:59 06:59 18:59 Intake Total 1030 / 1030 200 / 200 250 / 250 Balance 1030 / 1030 200 / 200 250 / 250 Weight 76.1 kg Intake: IV 250 / 250 200 / 200 250 / 250 Levaquin 750 mg Premix Inj 150 150 / 150 150 / 150 ML @ 100 mls/hr IV.SIG Q24H NIKKI Rx#:[id number] Flagyl 500 MG Inj 100 ML @ 100 100 / 100 200 / 200 100 / 100 mls/hr IV.SIG Q8H NIKKI Rx#: [id number] Oral 780 / 780 Other: # Voids 4 5 Date of Last Bowel Movement 03/20/18 03/20/18 03/20/18 - Constitutional mild distress, obese - Routine HEENT Exam Head: Present: normocephalic (Round abdomen) ENT: Present: mucous membranes moist ( pale) - Routine Respiratory Exam Present: accessory muscle use (Even, unlabored at rest) - Routine Cardiovascular Exam Present: S1, S2 - Routine Abdominal Exam Present: soft, distended (Right upper quadrant) - Routine Neurological Exam Present: alert (Generalized weakness but feeling pretty good today) - Detailed Neurological Exam: Coma Scale Eye Opening: Spontaneous Results - Labs CBC & Chem 7: 03/21/18 09:45 03/21/18 11:50 Laboratory Results - last 24 hr 03/21/18 03/21/18 03/22/18 17:06 20:00 06:41 POC Glucose 107 159 H 123 H 03/22/18 12:23 POC Glucose 103 Microbiology 03/18/18 11:27 Blood - Peripheral Aerobic Blood Culture - Preliminary No growth in 4 days 03/18/18 11:27 Blood - Peripheral Anaerobic Blood Culture - Preliminary No growth in 4 days 03/18/18 11:32 Blood - Peripheral Aerobic Blood Culture - Preliminary No growth in 4 days 03/18/18 11:32 Blood - Peripheral Anaerobic Blood Culture - Preliminary No growth in 4 days - Imaging Impressions Abdomen/Pelvis CTA 03/21/18 00:00 CONCLUSION: 1. Atherosclerosis of the abdominal aorta and branch vessels as described. No significant stenosis. No thrombosis or other acute vascular abnormality demonstrated. 2. Persistent inflammatory changes in the mesentery of the right lower moderate and, although only partly visualized on the study, questionable abscess developing. The etiology of these inflammatory changes are uncertain but thought to be a severe, focal ileitis. Appendicitis or inflamed Meckel's diverticulum would also be in the differential. - Procedures none Assessment and Plan (1) Colitis Status: Inactive Code(s): K52.9 - Noninfective gastroenteritis and colitis, unspecified - Plan Assessment: - Colitis-- infectious vs inflammatory Presented with mid, lower abdominal pain, states intermittent for the past 3 months but became progressively unbearable after radiation on Friday. Denies any associated nausea, vomiting, changes in bowel habits. States last BM was on Friday. Denies any hematochezia or melena. CT abd/pelvis W IV contrast (03/17) Abnormal loops of distal small bowel in the right midabdomen with wall thickening and surrounding inflammatory change. This is nonspecific and could be infectious or inflammatory. This area was unremarkable on the recent PET/CT dated 01/27/2018. Colonoscopy (Jan 2014) by Dr. hughes --> Mild diverticulosis in the sigmoid colon. Colon mucosa was otherwise normal. Internal hemorrhoids. Recommended for repeat exam in 10 years. Has never had EGD - Recent diagnosis of lung cancer- began radiation therapy on Friday, today will be his third treatment. Planned to start chemotherapy on . - History of ETOH abuse- States he was drinking at least a six pack of beer a day until a month ago when he was told he need to quit because of the interaction it was going to have with chemotherapy. (03/20) Pt still having lower abdominal pain. Taking clear liquid diet. Denies nausea, vomiting. Agreeable to EGD/colonoscopy on Friday if symptoms persist. 03/22/2018 patient had abdomen pelvis CTA on 03/21/2018 which showed atherosclerotic abdominal aorta vessel is mildly aneurysmal distally 2.7 cm but no dissection no significant stenosis. Persistent inflammatory changes of the mesentery, questionable abscess developing the etiology of these inflammatory changes is uncertain but thought to be a severe focal ileitis appendicitis or inflamed Meckel's diverticulum could also be differential. Patient currently denies any abdominal pain and is prepping for EGD: In the a.m. denies any nausea vomiting but is tolerating clear and full liquids for the past few days without any trouble. BM today Plan Diet clear liquids today Prep mag citrate x2 and Dulcolax, discussed with nurse if patient's prep is not clear, call GI N.p.o. at midnight, hold any blood thinners EGD colonoscopy in a.m. Continue Levaquin and Flagyl PPI Monitor labs Bowel regimen as needed Supportive care Patient was seen per myself and Dr. Garcia, note was written on his behalf
[2018-03-22] MEDS: Carvedilol 12.5 MG Tablet PO SCH (20:26)
[2018-03-23 08:40] LABS: Hematocrit 33.3 % (39.0-51.0); Hemoglobin 11.1 gm/dL (13.0-17.0); Mean Corpuscular HGB Conc 33.2 % (32.0-36.0); Mean Corpuscular Volume 84.2 fL (80.0-100.0); Mean Platelet Volume 7.5 fL (7.0-11.0); Platelet Count 349 th/mm3 (150-450); Red Blood Count 3.96 mil/mm3 (4.50-5.90); Red Cell Distribution Width 15.6 % (11.6-17.2); White Blood Count 5.9 th/mm3 (4.0-11.0)
[2018-03-23 09:06] LABS: Anion Gap 12 meq/L (5-15); Aspartate Aminotransferase 26 U/L (15-37); Blood Urea Nitrogen 6 mg/dL (7-18); Calcium 8.7 mg/dL (8.5-10.1); Carbon Dioxide 25.8 meq/L (21.0-32.0); Chloride 103 meq/L (98-107); Glomerular Filtration Rate 86 mL/min (>89); Glucose,Random 119 mg/dL (74-106); Potassium 3.5 meq/L (3.5-5.1); Sodium 141 meq/L (136-145)
[2018-03-23 09:07] LABS: Alanine Aminotransferase 9 U/L (12-78)
[2018-03-23 09:09] LABS: Alkaline Phosphatase 66 U/L (45-117); Total Protein 6.6 g/dL (6.4-8.2)
[2018-03-23] MEDS ORDERED: Phenylephrine/NS 1000 MCG/10ML Syringe IV.PUSH ONE (09:31)
--- NOTE | 2018-03-23 10:31 | P.PCN ---
Date of procedure: 03/23/18 Pre-op diagnosis: Abdominal pain, abnormal findings on CT Procedure: PROCEDURE PERFORMED EGD with biopsy followed by colonoscopy with snare polypectomy PROCEDURE: The procedure, risks and benefits were discussed with Patient/POA and informed consent was obtained. Anesthesia sedated Patient with Diprivan. Patient was placed in the left lateral decubitus position. EGD: The Pentax videoscope was introduced through the oropharynx and advanced to the second portion of the duodenum under direct visualization. Retroflexion was performed in the stomach. FINDINGS: The esophagus this appeared to be unremarkable within normal limits The stomach this to appear to be unremarkable with normal limits The duodenum there was some mild nodularity with patchy erythema in the duodenal bulb of unclear significance this was biopsied the rest of the duodenum was unremarkable Colonoscopy: The Pentax videoscope was introduced through the rectum and advanced to cecum where the ileocecal valve and appendiceal orifice were identified. Retroflexion was performed in the rectum. Colonic prep was good FINDINGS: Colonic withdrawal time greater than 6 minutes. As the scope was slowly withdrawn colonic mucosa was carefully inspected the patient was noted to have a small sessile polyp in the ascending colon and in the sigmoid both measuring about 5 mm both were excised using cold snare technique and retrieved for further evaluation the patient was also noted to have scattered diverticuli throughout the colon retroflexion in rectum did reveal small size internal hemorrhoids rectal examination otherwise unremarkable ESTIMATED BLOOD LOSS: None SPECIMENS REMOVED: Duodenal and colon biopsies COMPLICATIONS: None IMPRESSION: Mild nodular duodenitis Colon polyps Scattered diverticulosis Small internal hemorrhoids PLAN: Await biopsies Check inflammatory markers Advance diet as tolerated If all is stable patient may be discharged from a GI standpoint in the morning to follow-up with GI Will probably pursue an outpatient imaging in a few months to follow-up on abnormalities noted on CT Anesthesia: MAC Surgeon: Kip Pena Condition: stable Disposition: floor
[2018-03-23] MEDS: Insulin NovoLOG Aspart Correctional Sugar Inj SQ SCH ×4 (11:24→21:59)
[2018-03-23] MEDS ORDERED: Sodium Chloride 0.9% 2 ML Flush PRN IV.FLUSH (11:47)
[2018-03-23] MEDS: Magnesium Oxide 400 MG Tablet PO SCH ×2 (12:15→21:58)
[2018-03-23] MEDS: Enoxaparin Inj 40 MG/0.4 ML Syringe SQ SCH (12:16)
[2018-03-23] MEDS: Carvedilol 12.5 MG Tablet PO SCH ×2 (12:16→21:58)
[2018-03-23] MEDS: Ezetimibe 10 MG Tablet PO SCH (12:16)
[2018-03-23] MEDS: guaiFENesin 600 MG ER Tablet PO SCH ×2 (12:16→21:58)
--- NOTE | 2018-03-23 13:42 | P.PN ---
Subjective Interval history: Follow up for colitis. The patient is seen s/p EGD/colonoscopy which showed duodenitis, colon polyps, scattered diverticulosis, small internal hemorrhoids. He has tolerated oral intake post procedure. Denies any abdominal pain, nausea/ vomiting. Had multiple BMs last night after bowel prep. Denies any fevers/ chills. He is looking forward to going home. Physical Exam Vital signs: Vital Signs 03/22/18 16:00 03/22/18 20:00 03/22/18 23:52 Temperature 98.4 F 98.5 F Pulse Rate 103 H 101 H 91 H Respiratory Rate 20 17 Blood Pressure 105/56 L 98/52 L Pulse Oximetry 91 L 93 L 03/23/18 00:00 03/23/18 03:50 03/23/18 04:00 Temperature 98.1 F 98.2 F Pulse Rate 114 H 108 H 91 H Respiratory Rate 18 17 Blood Pressure 111/65 131/67 Pulse Oximetry 93 L 94 L 03/23/18 08:45 03/23/18 10:31 03/23/18 11:03 Temperature 97 F L Pulse Rate 98 H 98 H Respiratory Rate 20 18 Blood Pressure 119/62 Pulse Oximetry 95 03/23/18 12:00 Temperature 98.1 F Pulse Rate 104 H Respiratory Rate 18 Blood Pressure 151/73 H Pulse Oximetry 96 Intake & Output 03/22/18 03/23/18 03/23/18 18:59 06:59 18:59 Intake Total 1490 / 1490 100 / 100 850 / 850 Balance 1490 / 1490 100 / 100 850 / 850 Weight 74.6 kg Intake: IV 350 / 350 100 / 100 250 / 250 Levaquin 750 mg Premix Inj 150 150 / 150 150 / 150 ML @ 100 mls/hr IV.SIG Q24H NIKKI Rx#:[id number] Flagyl 500 MG Inj 100 ML @ 100 200 / 200 100 / 100 100 / 100 mls/hr IV.SIG Q8H NIKKI Rx#: [id number] Oral 1140 / 1140 Anesthesia Amount 600 / 600 Other: # Voids 3 5 Date of Last Bowel Movement 03/20/18 03/22/18 03/22/18 # Bowel Movements 4 Narrative: GENERAL: Well-nourished, well-developed pleasant elderly male patient in [facility]. SKIN: Warm and dry. No rash. HEENT: Normocephalic. Atraumatic. Pupils equal and round. Mucous membranes pink and moist. CARDIOVASCULAR: Regular rate and rhythm. No murmur appreciated. RESPIRATORY: No accessory muscle use. Clear to auscultation. Breath sounds equal bilaterally. GASTROINTESTINAL: Abdomen soft, non-tender, nondistended. Normoactive bowel sounds x4. MUSCULOSKELETAL: No obvious deformities. Extremities without clubbing, cyanosis , or edema. NEUROLOGICAL: Awake and alert. No obvious cranial nerve deficits. Moving all extremities spontaneously. Normal speech. PSYCHIATRIC: Appropriate mood and affect; insight and judgment normal. Results - Labs CBC & Chem 7: 03/23/18 07:43 03/23/18 07:43 Laboratory Results - last 24 hr 03/22/18 03/22/18 03/22/18 16:29 16:56 19:27 WBC RBC Hgb Hct MCV MCH MCHC RDW Plt Count MPV ESR Sodium Potassium Chloride Carbon Dioxide Anion Gap BUN Creatinine 0.94 Estimated GFR 78 L POC Glucose 115 H 130 H Random Glucose Calcium Total Bilirubin AST ALT Alkaline Phosphatase Total Protein Albumin 03/23/18 03/23/18 03/23/18 07:43 07:43 07:43 WBC 5.9 RBC 3.96 L Hgb 11.1 L Hct 33.3 L MCV 84.2 MCH 28.0 MCHC 33.2 RDW 15.6 Plt Count 349 MPV 7.5 ESR 79 H Sodium 141 Potassium 3.5 Chloride 103 Carbon Dioxide 25.8 Anion Gap 12 BUN 6 L Creatinine 0.86 Estimated GFR 86 L POC Glucose Random Glucose 119 H Calcium 8.7 Total Bilirubin 0.2 AST 26 ALT 9 L Alkaline Phosphatase 66 Total Protein 6.6 D Albumin 2.0 L 03/23/18 07:49 WBC RBC Hgb Hct MCV MCH MCHC RDW Plt Count MPV ESR Sodium Potassium Chloride Carbon Dioxide Anion Gap BUN Creatinine Estimated GFR POC Glucose 123 H Random Glucose Calcium Total Bilirubin AST ALT Alkaline Phosphatase Total Protein Albumin Microbiology 03/18/18 11:27 Blood - Peripheral Aerobic Blood Culture - Final No growth in 5 days 03/18/18 11:27 Blood - Peripheral Anaerobic Blood Culture - Final No growth in 5 days 03/18/18 11:32 Blood - Peripheral Aerobic Blood Culture - Final No growth in 5 days 03/18/18 11:32 Blood - Peripheral Anaerobic Blood Culture - Final No growth in 5 days - Procedures 03/23/18 - EGD/Colonoscopy by Dr. Pean showed Mild nodular duodenitis, Colon polyps, Scattered diverticulosis, Small internal hemorrhoids Assessment and Plan - Assessment (1) Colitis Code(s): K52.9 - Noninfective gastroenteritis and colitis, unspecified Status : Acute - Plan 77-year-old male with hx of lung cancer, CAD, HTN, HLD, DM type 2, presented with 3 months of worsening abdominal pain. Sepsis with Acute Colitis: presented with intractable abdominal pain -CT abd/pelvis 03/17 showed Abnormal loops of distal small bowel in the right midabdomen with wall thickening and surrounding inflammatory change. This is nonspecific and could be infectious or inflammatory. -CTA abd/pelvis 03/21 showed Persistent inflammatory changes in the mesentery of the right lower moderate and, although only partly visualized on the study, questionable abscess developing. -Met sepsis criteria with WBC 13.3K, tachycardia HR 110s, and suspected source- colitis -Blood cultures with NGTD, UA negative -On antibiotics with IV Levaquin and IV Flagyl -Supportive treatment with IVF, pain control, and antiemetics prn -Consult GI, appreciate assistance -S/p EGD/colonoscopy 03/23 which showed Mild nodular duodenitis, Colon polyps, Scattered diverticulosis, Small internal hemorrhoids -Sepsis improved, leukocytosis resolved with WBC 5.9K -Diet advanced to regular -GI reports patient may be discharge in am if stable and tolerating oral intake -F/up as outpatient with GI for biopsy results and repeat imaging Coronary artery disease/hypertension: chronic, BP fairly well controlled -Continue patient's Coreg, Lipitor, Zetia -Monitor BP, adjust antihypertensives as needed Hx of Afib: currently in sinus with episodes of tachycardia -evaluated by cardiology, patient known to Dr. Suarez, seen by Dr. Burt, increased dosing of Coreg and Cardizem -continue outpatient f/up with Dr. Suarez Lung cancer -patient is under the care of Dr. Lynch and is on radiation/chemo -continue outpatient f/up Diabetes mellitus type 2 -Continue Accu-Cheks with low-dose insulin sliding scale. Dyslipidemia -Continue statin Lovenox for DVT prophylaxis Discharge Planning: Plan to discharge early am on 03/24 if tolerating oral intake.
[2018-03-23] MEDS: Sodium Chloride 0.9% 2 ML Flush BID IV.FLUSH SCH (21:59)
[2018-03-24] MEDS: Magnesium Oxide 400 MG Tablet PO SCH (08:07)
[2018-03-24] MEDS: Enoxaparin Inj 40 MG/0.4 ML Syringe SQ SCH (08:07)
[2018-03-24] MEDS: guaiFENesin 600 MG ER Tablet PO SCH (08:08)
[2018-03-24] MEDS: Sodium Chloride 0.9% 2 ML Flush BID IV.FLUSH SCH (08:08)
[2018-03-24] MEDS: Carvedilol 12.5 MG Tablet PO SCH (08:08)
[2018-03-24] MEDS: Ezetimibe 10 MG Tablet PO SCH (08:08)
--- NOTE | 2018-03-24 08:59 | P.DS ---
Date of admission: 03/18/18 18:05 Primary care physician: Jose Smart MD Attending physician on discharge: Richard Chaves Anticipated date of discharge: 03/24/18 Brief History from admission: patient is a 77 y/o male with history of lung cancer, CAD, hypertension, diabetes mellitus and dyslipidemia who presented to ER with abdominal pain. he says that he's had this pain- on and off- for the past three months. pain is periumbilical with no radiation. pain was not associated with nausea, vomiting, change in BM or fever. he says that he was prescribed antibiotics by her pcp about two weeks ago with no significant relief. he says that the pain started to get worse yesterday. he says that he went for his radiation this morning and then he was advised to come to ER. he says that he's in the process of a referral to a medical biller. he says that his last colonoscopy was three years ago which reportedly didn't reveal any major abnormalities. Patient update on day of discharge: Follow up for colitis, duodenitis. The patient reports feeling better again today and wants to go home. He denies any fevers/chills, abdominal pain, nausea/ vomiting, or diarrhea. He is tolerating oral intake. He plans to go straight from discharge to the [facility] for radiation. He has no other medical complaints at this time. Discussed changes to his medications and recommendations to follow up with GI and cardiology after discharge, patient verbalized understanding. DS: Diagnosis - Discharge Diagnosis (1) Colitis Status: Acute (2) Duodenitis Status: Acute (3) HTN (hypertension) Status: Acute (4) Tachycardia Status: Acute (5) Lung cancer Status: Chronic DS: Medications - Discharge Medications Prescriptions: carvedilol [Coreg] 12.5 mg PO BID #60 tab diltiazem HCl [Cardizem CD] 360 mg PO DAILY #30 cap Lactobacillus acidoph-L.bulgar [Lactinex] 1 tab PO BID 8 Days #16 tab levofloxacin [Levaquin] 750 mg PO DAILY 8 Days #8 tab metronidazole [Flagyl] 500 mg PO TID 8 Days #24 tab pantoprazole 40 mg PO DAILY #30 tab DS: Summary Hospital Course: 77-year-old male with hx of lung cancer, CAD, HTN, HLD, DM type 2, presented with 3 months of worsening abdominal pain. Sepsis with Acute Colitis: presented with intractable abdominal pain. CT abd/ pelvis 03/17 showed Abnormal loops of distal small bowel in the right midabdomen with wall thickening and surrounding inflammatory change. This is nonspecific and could be infectious or inflammatory. CTA abd/pelvis 03/21 showed Persistent inflammatory changes in the mesentery of the right lower moderate and, although only partly visualized on the study, questionable abscess developing. Met sepsis criteria with WBC 13.3K, tachycardia HR 110s, and suspected source- colitis. Blood cultures with NGTD, UA negative. Given antibiotics with IV Levaquin and IV Flagyl. Given supportive treatment with IVF, pain control, and antiemetics prn. Consulted GI. S/p EGD/colonoscopy 03/23 which showed Mild nodular duodenitis, Colon polyps, Scattered diverticulosis, Small internal hemorrhoids. Sepsis improved, leukocytosis resolved with WBC 5.9K. Diet advanced to regular. GI reports patient may be discharges if stable and tolerating oral intake. Patient tolerating oral intake upon discharge. Recommended follow up as outpatient with GI for biopsy results and repeat imaging, patient verbalized understanding. Coronary artery disease/hypertension: chronic, BP fairly well controlled. Continued patient's Coreg, Lipitor, Zetia. Hx of Afib: currently in sinus with episodes of tachycardia. Evaluated by cardiology, patient known to Dr. Suarez, seen by Dr. Burt, increased dosing of Coreg and Cardizem. HR better controlled, improved with rest and increased Coreg /Cardizem dosing. Continue outpatient f/up with Dr. Suarez. Lung cancer: patient is under the care of Dr. Lynch and is on radiation/ chemo. Continue outpatient f/up. Patient going straight from discharge to [facility] for radiation today. Diabetes mellitus type 2. Continued Accu-Cheks with low-dose insulin sliding scale. Dyslipidemia: Continued statin - Time Spent with Patient Total time spent providing and/or coordinating discharge services: Greater than 30 minutes - Quality: VTE Deep Vein Thrombosis/Pulmonary Embolism Present on Admission: No Exam Vital signs: Vital Signs 03/23/18 10:31 03/23/18 11:03 03/23/18 12:00 Temperature 97 F L 98.1 F Pulse Rate 98 H 98 H 104 H Respiratory Rate 18 18 Blood Pressure 119/62 151/73 H Pulse Oximetry 96 03/23/18 16:00 03/23/18 20:00 03/23/18 20:05 Temperature 99.7 F H 98.4 F Pulse Rate 114 H 85 100 H Respiratory Rate 18 17 Blood Pressure 120/62 97/52 L Pulse Oximetry 95 94 L 03/23/18 23:59 03/24/18 00:00 03/24/18 04:00 Temperature 98.3 F 98.5 F Pulse Rate 98 H 76 91 H Respiratory Rate 17 17 Blood Pressure 104/56 L 119/65 Pulse Oximetry 93 L 94 L 03/24/18 08:00 Temperature 98.3 F Pulse Rate 108 H Respiratory Rate 22 Blood Pressure 109/62 Pulse Oximetry 93 L Intake & Output 03/23/18 03/24/18 03/24/18 18:59 06:59 18:59 Intake Total 2049 100 / 100 Balance 2049 100 / 100 Weight 75.2 kg Intake: IV 350 / 350 100 / 100 Levaquin 750 mg Premix Inj 150 150 / 150 ML @ 100 mls/hr IV.SIG Q24H NIKKI Rx#:[id number] Flagyl 500 MG Inj 100 ML @ 100 200 / 200 100 / 100 mls/hr IV.SIG Q8H NIKKI Rx#: [id number] Oral 1100 / 1100 Anesthesia Amount 600 / 600 Other: # Voids 8 4 Date of Last Bowel Movement 03/23/18 03/23/18 # Bowel Movements 1 Narrative: GENERAL: Well-nourished, well-developed pleasant elderly male patient in [facility]. SKIN: Warm and dry. No rash. HEENT: Normocephalic. Atraumatic. Pupils equal and round. Mucous membranes pink and moist. CARDIOVASCULAR: Regular rate and rhythm. No murmur appreciated. RESPIRATORY: No accessory muscle use. Clear to auscultation. Breath sounds equal bilaterally. GASTROINTESTINAL: Abdomen soft, non-tender, nondistended. Normoactive bowel sounds x4. MUSCULOSKELETAL: No obvious deformities. Extremities without clubbing, cyanosis , or edema. NEUROLOGICAL: Awake and alert. No obvious cranial nerve deficits. Moving all extremities spontaneously. Normal speech. PSYCHIATRIC: Appropriate mood and affect; insight and judgment normal. Results Procedures completed during hospitalization: 03/23/18 - EGD/Colonoscopy by Dr. Pena showed Mild nodular duodenitis, Colon polyps, Scattered diverticulosis, Small internal hemorrhoids Pending studies at discharge: Pending at discharge 03/23/18 13:41 Surgical [PTH] Routine Labs on day of discharge: Labs from last 24 hours 03/24/18 03/23/18 03/23/18 08:07 21:47 16:33 ESR Sodium Potassium Chloride Carbon Dioxide Anion Gap BUN Creatinine Estimated GFR POC Glucose 109 123 H 149 H Random Glucose Calcium Total Bilirubin AST ALT Alkaline Phosphatase Total Protein Albumin 03/23/18 03/23/18 07:43 07:43 ESR 79 H Sodium 141 Potassium 3.5 Chloride 103 Carbon Dioxide 25.8 Anion Gap 12 BUN 6 L Creatinine 0.86 Estimated GFR 86 L POC Glucose Random Glucose 119 H Calcium 8.7 Total Bilirubin 0.2 AST 26 ALT 9 L Alkaline Phosphatase 66 Total Protein 6.6 D Albumin 2.0 L - Impressions ITS Impressions Abdomen/Pelvis CT 03/17/18 12:16 CONCLUSION: 1. Abnormal loops of distal small bowel in the right midabdomen with wall thickening and surrounding inflammatory change. This is nonspecific and could be infectious or inflammatory. This area was unremarkable on the recent PET/CT dated 01/27/2018. Chest X-Ray 03/19/18 04:31 CONCLUSION: Worsening opacities in the right lung Abdomen X-Ray 03/20/18 00:00 CONCLUSION: No significant stool retention. Abdomen/Pelvis CTA 03/21/18 00:00 CONCLUSION: 1. Atherosclerosis of the abdominal aorta and branch vessels as described. No significant stenosis. No thrombosis or other acute vascular abnormality demonstrated. 2. Persistent inflammatory changes in the mesentery of the right lower moderate and, although only partly visualized on the study, questionable abscess developing. The etiology of these inflammatory changes are uncertain but thought to be a severe, focal ileitis. Appendicitis or inflamed Meckel's diverticulum would also be in the differential. Discharge Plan - Discharge Disposition Patient Disposition: 01 Discharge Home - Discharge Condition Condition: Stable - Discharge Order Discharge Orders: Discharge Order (Routine); Ordered 03/24/18 Ordered By: Madiha Jay - Discharge Details Anticipated Discharge Date: 03/24/18 - Physicians Team Primary Care Provider: Jose Smart Attending Provider: Richard Chaves Other Providers: Leia Briceno MD ; Cristina Evans ; Fab Burt MD
[2018-03-24] MEDS: Insulin NovoLOG Aspart Correctional Sugar Inj SQ SCH (09:04)
== END 2018-03-24 10:22 | disposition home or self-care (01) ==
LOC: NEPC 11:51 → NEDA 14:55 → INTOOBSV 14:55 → HCIN 18:09 → N06 03-20 16:58
PROVIDERS: ADMIT Internal Medicine; ATTEND Internal Medicine
PROC: PANENDO (2018-03-23 09:31)
PROC: COLONOS (2018-03-23 09:31)
DX: Z79.899 Other long term (current) drug therapy; A41.9 Sepsis, unspecified organism; I10 Essential (primary) hypertension; I47.1 Supraventricular tachycardia; K59.00 Constipation, unspecified; E78.5 Hyperlipidemia, unspecified; I25.2 Old myocardial infarction; Z87.891 Personal history of nicotine dependence; K29.80 Duodenitis without bleeding; C34.11 Malignant neoplasm of upper lobe, right bronchus or lung; Z95.5 Presence of coronary angioplasty implant and graft; I25.10 Atherosclerotic heart disease of native coronary artery without angina pectoris; K63.5 Polyp of colon; Z79.84 Long term (current) use of oral hypoglycemic drugs; K52.9 Noninfective gastroenteritis and colitis, unspecified; Z88.6 Allergy status to analgesic agent; Z88.5 Allergy status to narcotic agent; K64.8 Other hemorrhoids; K21.9 Gastro-esophageal reflux disease without esophagitis; E11.9 Type 2 diabetes mellitus without complications